=== PATIENT | female | born 1980 | race Caucasian/White ===

== ENCOUNTER 2017-10-12 10:04 | Emergency (ER) | payer OTHER, SELFPAY ==
[2017-10-12 10:34] VITALS: BP 122/78; PULSE 83; RESP 18; TEMP 37.1; O2SAT 98; BMI 32.3
[2017-10-12 10:47] LABS: UTC Influenza A Antigen Negative (Negative); UTC Influenza B Antigen Negative (Negative)
--- NOTE | 2017-10-12 11:25 | HMH.EDUTC ---
[facility] [place] Clinical Impression: Viral respiratory illness, Exposure to influenza Disposition: Home, Self-Care Condition on Discharge: Good Instructions: How to Avoid a Cold or Flu, DI for Viral Upper Respiratory Infection -- Adult Additional Instructions: * No sign of bacterial infection. Likely viral. Virus can take 7-14 days to run their course. Could be the flu. If getting worse, we can always retest you. * Monitor Temp. Tylenol every 4 hours as needed no more then 5 times a day or 4000mg in 24 hours and/or ibuprofen every 6 hours as needed no more then 3200mg in 24 hours (as long as your primary care doctor has told you that it is ok to take both) for fever/aches/pain. ER if fever no less than 101 despite tylenol and ibuprofen * Encourage fluids, water, gatorade, powerade, pedialyte if infant/toddler/child * warm salt water gargles * warm fluids * sore throat lozenges * sleep elevated * humidifier/vaporizer * You (or your child) are contagious until no fever, aches, chills x 24 hours without medication for symptoms. Referrals: Zuhair Minor MD [Primary Care Provider] - (IMMEDIATELY for new or worsening symptoms, improvement followed by suddenly feeling worse OR no noticeable improvement over the next 48-72 hours. 911 for difficulty breathing ) Time of Disposition: 11:42 Medical Decision Making Vital Signs: 10/12/17 10:34 Temperature 98.8 F Temperature Source Oral Pulse Rate [Right Radial] 83 Respiratory Rate 18 Blood Pressure [Right Arm] 122/78 Blood Pressure Mean [Right Arm] 92 Blood Pressure Source [Right Arm] Automatic Cuff Blood Pressure Position [Right Arm] Sitting 02 Sat by Pulse Oximetry 98 Oxygen Delivery Method Room Air - Lab Data Lab Results 10/12/17 10:36: Influenza Type A Ag Negative, Influenza Type B Ag Negative - Yonathan Inquiry Pt receiving controlled substance: No [facility] [place] - General Stated complaint: Chills, MARR Time Seen by Provider: 10/12/17 11:26 Mode of Arrival: Ambulatory Source of Information: Patient Limitations: No Limitations Description of Symptoms (Recalled from Triage Doc. by RN): PT C/O COUGH, HEADACHE, CHILLS. HEENT Symptoms (Recalled from RN notes): Yes (HEADACHE) Resp Symptoms (Recalled from RN notes): (COUGH) Skin Symptoms (Recalled from RN notes): No MS Symptoms (Recalled from RN notes): No Functional Status (Recalled from RN notes): NA - History of Present Illness Provider Complaint: c/o nonprod cough, headache, chills today since being exposed to the flu. no treatment prior to arrival. Wants a flu test. - Related Data Home Medications Medication Instructions Recorded Confirmed Metoprolol Tartrate [Lopressor 25 mg PO DAILY 10/12/17 10/12/17 25mg tablet] methIMAzole [Methimazole] 5 mg PO DAILY 10/12/17 10/12/17 - Worker's Comp Is this a Worker's Comp case?: No [facility] History I have reviewed the patient's past medical history: Yes (denies) Other Surgeries: Yes: No Previous Surgery Amputation: No Fractures: No - *Social History Alcohol Intake: never - Psychiatric History Expresses thoughts of harming self/others: None Suicide Plan Description: No Plan ROS Obtained: Yes Systems reviewed as appropropriate & no additional complaint - Constitutional Reports chills, Denies anorexia, Denies body ache(s), Denies fatigue, Denies fever(s), Denies malaise - Eyes Denies discharge - ENT Reports nasal discharge, Denies ear pain, Denies nasal congestion, Denies sore throat - Cardiovascular Denies rapid, pounding, or irregular heartbeat - Respiratory Reports cough, Denies shortness of breath, Denies stridor, Denies wheezing - Gastrointestinal Reports nausea, Reports vomiting - Integumentary/Breasts Denies rash - Neurologic Reports headache(s), Denies dizziness Physical Exam - General General appearance: alert, in no apparent distress - Eye Eye exam: Present: normal appearance - ENT ENT exam: Present
== END 2017-10-12 11:48 | disposition home or self-care (01) ==
PROVIDERS: Emergency Provider Nurse Practitioner Family; PCP Family Medicine
DX: B34.9 Viral infection, unspecified (principal); Z20.828 Contact with and (suspected) exposure to other viral communicable diseases
CPT/HCPCS: 87276; 87804; 99202

== ENCOUNTER → 2018-01-29 12:21 | Outpatient (REF) | payer OTHER, SELFPAY ==
[2018-01-29 14:22] LABS: Basophils % 0.4 % (0.1-2.0); Eosinophils # 0.1 K/mm3 (0.0-0.4); Eosinophils % 1.3 % (0.1-12.0); Hematocrit 42.8 % (37.0-47.0); Hemoglobin 13.7 g/dL (12.2-16.2); Lymphocytes # 1.8 K/mm3 (0.7-4.5); Lymphocytes % 23.1 K/mm3 (10-50); Mean Corpuscular Hemoglobin 28.6 pg (27.0-31.2); Mean Corpuscular Volume 89.4 fl (81-99); Mean Platelet Volume 8.7 fl (7.4-10.4); Monocytes # 0.4 K/mm3 (0.1-1.0); Monocytes % 4.9 % (1.7-9.3); Neutrophils # 5.5 K/mm3 (1.8-7.8); Neutrophils % 70.3 % (37.0-80.0); Platelet Count 356 K/mm3 (142-424); Red Blood Count 4.79 M/mm3 (4.20-5.40); White Blood Count 7.9 K/mm3 (4.8-10.8)
[2018-01-29 15:38] LABS: Hemoglobin A1C 5.3 % (0.0-7.0)
[2018-01-29 17:27] LABS: Alanine Aminotransferase 20 U/L (12-78); Albumin Level 3.7 gm/dL (3.4-5.0); Albumin/Globulin Ratio 1.1 (1.1-1.8); Alkaline Phosphatase 60 U/L (46-116); Anion Gap 14.4 mEq/L (5-15); Aspartate Amino Transferase 13 U/L (15-37); Bilirubin,Total 0.4 mg/dL (0.2-1.0); Blood Urea Nitrogen 10 mg/dL (7-18); Calcium 9.2 mg/dL (8.5-10.1); Carbon Dioxide 27 mmol/L (21.0-32.0); Chloride 103 mmol/L (98-107); Cholesterol 231 mg/dL (140-200); Creatinine,Serum 0.58 mg/dL (0.55-1.02); Estimated Glomerular Filt Rate 116 ml/min (>60); GFR (African American) 141 ML/MIN (>60); Globulin 3.5 gm/dl (1.3-3.2); Glucose 90 mg/dL (74-106); HDL Cholesterol 46 mg/dL (29-89); LDL Cholesterol 160 mg/dL (0-130); Potassium 4.4 mmoL/L (3.5-5.1); Sodium 140 mmol/L (136-145); T4 (Thyroxine) 11.9 ug/dl (4.7-13.3); Thyroid Stimulating Hormone 3.49 uIU/ml (0.358-3.740); Total Protein,Serum 7.2 gm/dL (6.4-8.2); Triglycerides 125 mg/dL (30-200); Triiodothryronine (T3) Uptake 25 % (31-39); VLDL Cholesterol 25 mg/dL (0-40)
[2018-01-31 12:53] LABS: Thyroid Peroxidase Antibodies 10 IU/mL (0-34)
== END ==
LOC: LAB 12:21
PROVIDERS: Visit Provider Nurse Practitioner Family
DX: R53.83 Other fatigue (principal)
CPT/HCPCS: 80053; 80061; 82652; 83036; 84436; 84443; 84479; 85025; 86376

== ENCOUNTER → 2018-04-15 10:33 | Outpatient (CLI) | payer OTHER, SELFPAY ==
[2018-04-15 11:51] LABS: Free T4 (Free Thyroxine) 0.84 ng/dl (0.76-1.46); Thyroid Stimulating Hormone 2.88 uIU/ml (0.358-3.740)
[2018-04-17 06:04] LABS: Triiodothyronine (T3) Free 2.9 pg/mL (2.0-4.4)
== END ==
PROVIDERS: Visit Provider Internal Medicine Endocrinology, Diabetes & Metabolism
DX: E03.8 Other specified hypothyroidism (principal); E06.3 Autoimmune thyroiditis
CPT/HCPCS: 36415; 84439; 84443; 84481

== ENCOUNTER → 2019-02-16 09:34 | Outpatient (CLI) | payer OTHER, SELFPAY ==
--- NOTE | 2019-02-16 09:45 | XR_ITS ---
XR ribs LT min 3V w CXR1V HISTORY: Left-sided rib pain ITS.REASON: LT RIB PAIN ORDERING PHYSICIAN: Annabel Soto MD PATIENT AGE: 38 years Comparison: None FINDINGS: A frontal view of the chest shows no acute finding. Multiple views of the Left ribs were obtained. No fracture or dislocation. No lytic or blastic change. IMPRESSION: Negative RIBS. If pain persists, consider follow-up exam in 7-[address] with 3-D reformats.
== END ==
PROVIDERS: PCP Emergency Medicine; Visit Provider Emergency Medicine
DX: R07.81 Pleurodynia (principal)
CPT/HCPCS: 71101

== ENCOUNTER → 2019-03-03 16:09 | Outpatient (CLI) | payer BC, SELFPAY ==
--- NOTE | 2019-03-03 16:18 | XR_ITS ---
XR acute abdomen series HISTORY: ITS.REASON: ABDOMINAL PAIN, LUQ ORDERING PHYSICIAN: Zuhair Minor MD PATIENT AGE: 38 years COMPARISON: None TECHNIQUE: Upright view of the chest is performed along with upright and supine views of the abdomen and pelvis. FINDINGS: An upright view of the chest shows no acute cardiac or pulmonary pathology. The lungs are clear. Upright and supine views of the abdomen show an unremarkable bowel gas pattern. No intestinal obstruction or free air is evident. No abnormal calcifications or significant bony anomalies evident. No organomegaly apparent. There is mild amount of retained colonic feces IMPRESSION: No acute finding.
== END ==
PROVIDERS: PCP Family Medicine; Visit Provider Family Medicine
DX: R10.12 Left upper quadrant pain (principal)
CPT/HCPCS: 74021

== ENCOUNTER → 2019-03-09 09:07 | Outpatient (CLI) | payer BC, SELFPAY ==
--- NOTE | 2019-03-09 09:13 | US_ITS ---
US abdomen limited History:Left upper quadrant pain, upper abdominal pain Ordering Physician:Sheela Trujillo APRN Patient Age: 38 years Comparison:None Findings: Pancreas:The pancreas is poorly demonstrated due to overlying bowel gas. Liver:Unremarkable. No obvious mass or abnormal fluid collection. No ductal dilatation Right Kidney:Unremarkable. Normal size and echogenicity. No hydronephrosis Gallbladder:Gallbladder is contracted. No stones, gallbladder wall thickening, pericholecystic fluid, or biliary dilatation is evident. Common bile duct is 4 mm. Spleen: Unremarkable. Left kidney: Unremarkable. Impression: Contracted appearing gallbladder. No obvious stones or other significant anomalies The pancreas is poorly demonstrated due to overlying bowel gas
== END ==
PROVIDERS: PCP Nurse Practitioner Family; Visit Provider Nurse Practitioner Family
DX: R10.12 Left upper quadrant pain (principal)
CPT/HCPCS: 76700

== ENCOUNTER → 2019-03-26 16:58 | Outpatient (CLI) | payer BC, SELFPAY ==
--- NOTE | 2019-03-26 17:09 | XR_ITS ---
XR foot RT min 3V HISTORY: ITS.REASON: MASS OF RIGHT FOOT ORDERING PHYSICIAN: RUDY Camilo PATIENT AGE: 38 years COMPARISON: None FINDINGS: No fracture or dislocation. No lytic or blastic change. There is normal mineralization.. The joint spaces are well-preserved. No significant degenerative/arthritic changes. No erosive changes evident. There is an oval soft tissue mass along the dorsal aspect of the foot at the proximal to mid metatarsal region measuring 2.6 x 1.1 cm. No calcification. No bony erosion. IMPRESSION: 1. Dorsal subcutaneous soft tissue nodule at the metatarsal region 2. Otherwise negative
== END ==
PROVIDERS: PCP Family Medicine; Visit Provider Physician Assistant
DX: R22.41 Localized swelling, mass and lump, right lower limb (principal)
CPT/HCPCS: 73630

== ENCOUNTER → 2019-04-07 18:40 | Outpatient (CLI) | payer BC, SELFPAY | PROVIDERS: Visit Provider Podiatrist | DX: R22.41 Localized swelling, mass and lump, right lower limb (principal) | CPT/HCPCS: 87070; 87205 ==

== ENCOUNTER → 2019-06-26 08:16 | Outpatient (CLI) | payer BC, SELFPAY ==
[2019-06-26 08:24] LABS: Adenovirus F 40/41, stool Not Detected (NotDetected); Astrovirus Not Detected (NotDetected); Campylobacter Not Detected (NotDetected); Clostridium Difficile A/B, PCR Not Detected (NotDetected); Cryptosporidium Not Detected (NotDetected); Cyclospora Cayetanesis Not Detected (NotDetected); Entamoeba histolytica Not Detected (NotDetected); Enteroaggregative E coli Not Detected (NotDetected); Enteropathogenic E coli Not Detected (NotDetected); Enterotoxigenic E coli Not Detected (NotDetected); Giardia lamblia Not Detected (NotDetected); Norovirus Not Detected (NotDetected); Plesimonas Shigalloides, PCR Not Detected (NotDetected); Rotavirus A Not Detected (NotDetected); Salmonella, PCR Not Detected (NotDetected); Sapovirus Not Detected (NotDetected); Shiga-like toxin E coli Not Detected (NotDetected); Shigella Enterovasive E coli Not Detected (NotDetected); Vibrio Cholerae Not Detected (NotDetected); Vibrio, PCR Not Detected (NotDetected); Yersinia Entercolitica, PCR Not Detected (NotDetected)
[2019-06-26 09:02] LABS: Occult Blood,Stool Negative (Negative)
[2019-07-01 10:47] LABS: Calprotectin, Fecal 90 ug/g (0-120)
== END ==
PROVIDERS: Visit Provider Emergency Medicine
DX: K52.9 Noninfective gastroenteritis and colitis, unspecified (principal)
CPT/HCPCS: 82272; 83993; 87507; G0328

== ENCOUNTER → 2020-11-23 13:46 | Outpatient (CLI) | payer BC, SELFPAY ==
[2020-11-23 14:10] LABS: Chloride 104 mmol/L (98-107); Sodium 138 mmol/L (136-145)
[2020-11-23 14:12] LABS: Alanine Aminotransferase 17 U/L (12-78); Alkaline Phosphatase 69 U/L (38-126); Aspartate Amino Transferase 26 U/L (14-36); Bilirubin,Total 0.8 mg/dl (0.2-1.3); Blood Urea Nitrogen 11 mg/dl (7-17); Estimated Glomerular Filt Rate 92 ml/min (>60); GFR (African American) 112 ML/MIN (>60)
[2020-11-23 14:13] LABS: Albumin Level 4.3 g/dl (3.5-5.0); Albumin/Globulin Ratio 1.3 (1.1-1.8); Calcium 9.6 mg/dl (8.4-10.2); Carbon Dioxide 29 mmol/L (22.0-30.0); Creatine Kinase 147 U/L (30-135); Globulin 3.3 g/dL (1.3-3.2); Glucose 104 mg/dl (74-100); Total Protein,Serum 7.6 g/dl (6.3-8.2)
--- NOTE | 2020-11-23 14:14 | ECG_ITS ---
APPROVED REPORT Exam: Resting ECG HR:75 bpm ECG Measurements Heart Rate 75 AXES HI 114 P 39 QRSd 74 QRS 5 QT 400 T 11 QTc 446 Conclusion Normal sinus rhythm Late r wave progression Abnormal ECG Electronically signed by : Paramjit Hastings, 11/23/2020 14:20:09
[2020-11-23 14:21] LABS: CKMB Relative Index 1.3 U/L (0-4.0); Creatine Kinase MB 1.9 ng/ml (0.0-2.03)
[2020-11-23 14:25] LABS: Basophils % 0.3 % (0.1-2.0); Eosinophils # 0.1 K/mm3 (0.0-0.4); Eosinophils % 1.1 % (0.1-12.0); Hematocrit 41.9 % (37.0-47.0); Hemoglobin 13.3 g/dL (12.2-16.2); Lymphocytes # 2.2 K/mm3 (0.7-4.5); Mean Corpuscular HGB Conc 31.9 g/dL (31.8-35.4); Mean Corpuscular Hemoglobin 27.8 pg (27.0-31.2); Mean Corpuscular Volume 87.3 fl (81-99); Mean Platelet Volume 7.9 fl (7.4-10.4); Monocytes # 0.5 K/mm3 (0.1-1.0); Monocytes % 4.4 % (1.7-9.3); Neutrophils # 8.2 K/mm3 (1.8-7.8); Neutrophils % 74.1 % (37.0-80.0); Platelet Count 277 K/mm3 (142-424); Red Cell Distribution Width 13.7 % (11.5-17.5)
[2020-11-23 14:27] LABS: Troponin I < 0.01 ng/ml (0.00-0.034)
[2020-11-23 14:44] LABS: Thyroid Stimulating Hormone 2.16 uIU/mL (0.465-4.68)
== END ==
PROVIDERS: Visit Provider Physician Assistant
DX: R07.9 Chest pain, unspecified (principal)
CPT/HCPCS: 36415; 80053; 82550; 82553; 84443; 84484; 85025; 93005

== ENCOUNTER → 2020-11-25 07:23 | Outpatient (CLI) | payer BC, SELFPAY ==
--- NOTE | 2020-11-25 | CA_ITS ---
APPROVED REPORT Exam: Exercise Treadmill Technologist: Mariel Smith Ht: 4 ft 11 in Wt: 165 lbs BSA: 1.70 m2 HR: 69 bpm BP: 127/80 mmHg Indications: Chest pain Medical History Medications: Esomeprazole,,,,, Budesonide,,,,, Levonorgestrel-Ethinyl,,,,, Stress Test Details Test: Vic HR Resting HR: 95 bpm Max Heart Rate (APMHR): 179 bpm Max HR Achieved: 172 bpm Target HR (85% APMHR): 152 bpm % of APMHR: 96 Recovery HR: 112 bpm BP Resting BP: 127.0/80.0 mmHg Max BP: 160.0/90.0 mmHg Recovery BP: 133.0/90.0 mmHg ECG Resting ECG: Normal sinus rhythm Clinical Reason for Termination: Dyspnea Exercise duration: 09:20 min Highest Stage Achieved: Exercise capacity: 10.1 METs Stress ECG Conclusion Symptoms: Mild chest tightness. No chest pain. Arrhythmias/Ectopy: None ST-T Changes: < 1.[address] segment depression - normal Conclusion: Negative stress test. Patient exercised on a vic protocol for 9 minutes and 20 seconds to peak heart rate of 172 bpm ( target heart rate 152 bpm) without chest pain or arrhythmias. Less than 1.[address] segment depression noted that resolved quickly in recovery, likely normal. Total METs acheived was 10.1 with peak blood pressure 160/90 mmHg. Mild chest tightness/shortness of air at peak stress that resolved quickly in recovery. See the nuclear report for further information. Test Summary Stage 3 02:00 14.0 3.4 160 . . . Myoview Injected REST . . . . . . . Standing REST 10:40 0.0 0.0 95 . 127/ 80 . . Stage 1 01:00 10.0 1.7 112 . . . . Stage 1 02:00 10.0 1.7 121 . . . . Stage 1 03:00 10.0 1.7 129 . 140/ 82 . . Stage 2 01:00 12.0 2.5 134 . . . . Stage 2 02:00 12.0 2.5 139 . . . . Stage 2 03:00 12.0 2.5 138 . 150/ 88 . . Stage 3 01:00 14.0 3.4 155 . . . . Stage 3 . . . . . . . Myoview Injected Stage 3 02:00 14.0 3.4 160 . . . . Stage 3 03:00 14.0 3.4 164 . 160/ 90 . . Stage 4 00:20 16.0 4.2 172 . . . Stop exercise at 09:20 RECOVERY . . . . . . . chest tightness RECOVERY 01:00 0.0 0.0 137 . . . . RECOVERY 02:00 0.0 0.0 115 . . . . RECOVERY 03:00 0.0 0.0 106 . . . . RECOVERY 04:00 0.0 0.0 103 . . . . RECOVERY 05:00 0.0 0.0 101 . . . . RECOVERY 05:23 0.0 0.0 108 . 133/ 90 . . Electronically signed by : Kiel Dalton, 11/25/2020 11:03:44
--- NOTE | 2020-11-25 07:32 | NM_ITS ---
APPROVED REPORT Exam: Nuclear Stress Test Indication: fm hx, c.p., sob, fatigue Patient Location: Outpatient Stress Tech: Mariel Smith [place] Tech:Cande Sanches DELONTE RT(R)(N) Ht: 4 ft 11 in Wt: 164 lbs Bra Size: 36DDD HR: 69 bpm BP: 127/80 mmHg BSA: 1.70 m2 BMI: 33.1 Procedure: Patient exercised on Luis Eduardo protocol 9:00 minutes and sec, resting heart rate 69 bpm, resting blood pressure 127/80 mmHg, with exercise maximum heart rate achived was 172 bpm which is 113 % of the maximum predicted heart rate and blood pressure was 160/90 mmHg. Patient has good exercise capacity, achieved 10.1 METs of workload on treadmill, the blood pressure response to exercise was Adequate. Electrocardiogram Resting electrocardiogram shows sinus rhythm, with exercise there is less than 1.[address] segment depression noted from the baseline EKG. The EKG portion of the exercise Myoview is negative for ischemia. Cardiac Stress and Resting SPECT Images: Cardiac Stress and Resting SPECT images were obtained using technetium 99m Myoview 30.0 mCi stress and 10.30 mCi at rest. Gated SPECT for analysis of segmental wall motion and calculation of the ejection fraction also done, prone images were also obtained. Cardiac stress and rest SPECT images show uniform myocardial activity without segmental perfusion abnormality, computer derived ejection fraction is 63% with no regional wall motion abnormality, right ventricle is normal size and contractility. Conclusion: 1. The EKG portion of the exercise Myoview is negative for ischemia, patient has good exercise capacity achieved 10.1 mets of workload on treadmill, the blood pressure response to exercise was adequate, with peak exercise patient complained of mild chest tightness and shortness of breath which resolved in the recovery quickly. There were no EKG changes to suggest ischemia. 2. No scintigraphic evidence of reversible ischemia seen, computer derived ejection fraction is 63% with no regional wall motion abnormality, right ventricle is normal size and contractility. Electronically signed by : Kiel Dalton, 11/25/2020 11:08:57
== END ==
PROVIDERS: PCP Nurse Practitioner Family; Visit Provider Physician Assistant
DX: R07.9 Chest pain, unspecified (principal)
CPT/HCPCS: 78452; 93017; A9502

== ENCOUNTER → 2020-12-15 16:26 | Outpatient (CLI) | payer BC, SELFPAY ==
--- NOTE | 2020-12-15 16:43 | ECG_ITS ---
APPROVED REPORT Exam: Resting ECG HR:88 bpm ECG Measurements Heart Rate 88 AXES MI 108 P 48 QRSd 74 QRS 18 QT 362 T 16 QTc 438 Conclusion Sinus rhythm with short MI Otherwise normal ECG Electronically signed by : Paramjit Hastings, 12/16/2020 08:53:53
== END ==
PROVIDERS: PCP Nurse Practitioner Family; Visit Provider Nurse Practitioner Family
DX: R00.0 Tachycardia, unspecified (principal)
CPT/HCPCS: 93005

== ENCOUNTER → 2020-12-20 08:22 | Outpatient (CLI) | payer BC, SELFPAY ==
--- NOTE | 2020-12-20 08:22 | US_ITS ---
PROCEDURE: US GALLBLADDER CLINICAL INDICATION: abd pain COMPARISON: No exams were available for comparison FINDINGS: Pancreas: Pancreas is not well delineated due to overlying bowel gas. CT or MRI without and with contrast with pancreatic protocol may provide further evaluation if clinically desired. Liver: Unremarkable. There is appropriate direction of blood flow within a non dilated portal vein. Right kidney: Unremarkable appearing. No hydronephrosis. Gallbladder: No stones are evident. There is no gallbladder wall thickening. Common duct is normal in diameter. IMPRESSION: Negative gallbladder ultrasound. No stones evident. Pancreas is not well delineated due to overlying bowel gas. Dictated by: Samuel Sun MD 12/21/2020 19:13 Samuel Sun MD in [place] 12/21/2020 19:13
== END ==
PROVIDERS: PCP Nurse Practitioner Family; Visit Provider Nurse Practitioner Family
DX: R10.9 Unspecified abdominal pain (principal); R11.0 Nausea
CPT/HCPCS: 76705

== ENCOUNTER → 2020-12-27 12:53 | Outpatient (CLI) | payer BC, SELFPAY ==
--- NOTE | 2020-12-27 12:54 | CA_ITS ---
APPROVED REPORT EXAM: Comprehensive 2D, Doppler, and color-flow Echocardiogram Greenhouse Laborer: Grace Morales RT(R) Ht: 5 ft 2 in Wt: 171lbs BSA: 1.79 BP: 155/87 mmHg Indications: cp, sob, HTN, Palpitations 2D Dimensions LVOT 1.86 cm (M/F) 1.5-2.5 M-Mode Dimensions RVDd 2.29 cm (0.9-2.6) LA Diam 2.62 cm (1.9-4.0) LVDd 3.51 cm (3.5-5.7) Ao Diam 1.72 cm (2.0-3.7) LVDs 2.69 cm (3.5-5.7) IVSd 0.61 cm (0.6-1.1) PWd 0.82 cm (0.6-1.1) EF (Teich) 47.70% FS 23.40% EDV (Teich) 51.20 mL ESV (Teich) 26.80 mL LV Diastology E Decel Time 220.00 (160-240 msec) E/A Ratio 1.16 MED E' 15.70 (< 7 cm/sec) E'/MED E' Ratio 5.25 (>14) LAT E' 11.90 (<10 cm/sec) E/LAT E' Ratio 6.92 (>14) Mitral Valve MV E Max Carrillo. 82.00 (40-130 cm/s) MV A Velocity 71.00 (40-130 cm/s) E/A Ratio 1.16 MV Decel. Time 220.00 (160-240 ms) MV PHT 64.00 ms Left Ventricle Left atrium is normal size, left ventricle is normal size, there is no concentric left ventricular hypertrophy, visually estimated ejection fraction 55% with no regional wall motion abnormality, diastolic parameters are within normal range. Right Ventricle Right atrium and right ventricle are normal size and contractility. Aortic Valve Aortic valve is grossly normal, there is no aortic stenosis or aortic insufficiency. Mitral Valve Mitral valve is grossly normal, there is trace mitral regurgitation. Tricuspid Valve Tricuspid grossly normal, there is trace tricuspid regurgitation, tricuspid regurgitation jet velocity is inadequate for calculation of the right ventricular systolic pressure. Pulmonic Valve Pulmonic valve is poorly visualized. Great Vessels Aortic root is normal size. Pericardium No significant pericardial effusion noted. Conclusion 1. Normal left ventricular size, preserved left ventricular systolic function, visually estimated ejection fraction 55% with no regional wall motion abnormality, diastolic parameters are within normal range. 2. Trace mitral and tricuspid regurgitation. 3. No significant pericardial effusion noted. Electronically signed by : Kiel Dalton, 12/27/2020 20:00:03
== END ==
PROVIDERS: PCP Nurse Practitioner Family; Visit Provider Nurse Practitioner Family
DX: R07.89 Other chest pain (principal); R06.02 Shortness of breath; R00.0 Tachycardia, unspecified
CPT/HCPCS: 93306

== ENCOUNTER → 2020-12-27 13:29 | Outpatient (CLI) | payer SELFPAY ==
--- NOTE | 2020-12-27 13:29 | CT_ITS ---
PROCEDURE: CT HEART W CALCIUM SCORE CLINICAL HISTORY: eval for cad COMPARISON: No exams were available for comparison TECHNIQUE: Axial images obtained with sagittal and coronal reformats. All CT scans at the facility use one or more dose reduction, viz: automated exposure control, ma/kV adjustment per patient size (including targeted exams where dose is matched to indication, i.e. head), or iterative reconstruction technique. FINDINGS: No identifiable calcific atherosclerotic plaque with very low cardiovascular disease risk. Coronary artery calcium score is 0 IMPRESSION: No identifiable calcific atherosclerotic plaque with very low cardiovascular disease risk Dictated by: Samuel Sun MD 12/27/2020 19:53 Samuel Sun MD in [place] 12/27/2020 19:53
== END ==
PROVIDERS: PCP Nurse Practitioner Family; Visit Provider Internal Medicine Cardiovascular Disease
DX: Z13.6 Encounter for screening for cardiovascular disorders (principal); R06.02 Shortness of breath; R07.9 Chest pain, unspecified; R00.0 Tachycardia, unspecified; I10 Essential (primary) hypertension
CPT/HCPCS: 75571

== ENCOUNTER 2021-01-07 10:24 | Emergency (ER) | payer BC, SELFPAY ==
[2021-01-07 10:39] VITALS: BP 153/87; PULSE 77; RESP 19; TEMP 37.1; O2SAT 100; BMI 34.3
--- NOTE | 2021-01-07 11:05 | HMH.EDUTC ---
[facility] [place] Clinical Impression: Contact dermatitis Qualifiers: Contact dermatitis type: allergic Contact dermatitis trigger: other trigger Qualified Code(s): L23.89 - Allergic contact dermatitis due to other agents Disposition: Home, Self-Care Condition on Discharge: Good Instructions: DI for Contact Dermatitis Additional Instructions: follow up with pcp Prescriptions: predniSONE [Prednisone 20mg Tab] 20 mg PO BID #10 tab Transmission Status: Pending to [id number] Referrals: Juvenal Gerardo APRN [Primary Care Provider] - Time of Disposition: 11:24 Medical Decision Making - Yonathan Inquiry Pt receiving controlled substance: No Vital Signs: 01/07/21 10:39 Temperature 98.7 F Temperature Source Oral Pulse Rate [Right] 77 Respiratory Rate 19 Blood Pressure [Right Arm] 153/87 H Blood Pressure Mean [Right Arm] 109 02 Sat by Pulse Oximetry 100 [facility] [place] HPI - General Chief complaint: Urgent Treatment Center Stated complaint: blood blisters on breast Time Seen by Provider: 01/07/21 11:05 Mode of Arrival: Ambulatory Source of Information: Patient Limitations: No Limitations Description of Symptoms (Recalled from Triage Doc. by RN): pt states she has a blood blister on her left breast that came up yesterday. it has started turning into a bruise today. HEENT Symptoms (Recalled from RN notes): No Resp Symptoms (Recalled from RN notes): No Skin Symptoms (Recalled from RN notes): Yes (blood blister on L breast) MS Symptoms (Recalled from RN notes): No Functional Status (Recalled from RN notes): na - History of Present Illness Provider Complaint: 40 yr old female pt states she has a blood blister on her left breast that came up yesterday. it has started turning into a bruise today. Pt states this has happened before. Pt states she has a red itchy rash also - Related Data Home Medications Medication Instructions Recorded Confirmed levothyroxine 25 mcg capsule 25 mcg PO DAILY 12/15/20 01/06/21 lisinopril 5 mg tablet 5 mg PO DAILY 12/15/20 01/06/21 Previous Rx's Medication Instructions Recorded cyclobenzaprine 10 mg tablet 10 mg PO TID PRN #60 tab 12/13/20 metoprolol succinate 25 mg 25 mg PO DAILY #90 tab 01/06/21 tablet,extended release 24 hr omeprazole 40 mg capsule,delayed 40 mg PO DAILY PRN #90 cap 01/06/21 release predniSONE [Prednisone 20mg 20 mg PO BID #10 tab 01/07/21 Tab] Allergies Allergy/AdvReac Type Severity Reaction Status Date / Time No Known Allergies Allergy Verified 01/07/21 10:43 - Worker's Comp Is this a Worker's Comp case?: No H History - Hepatitis A Screen Drug use history?: No High risk sexual behaviors?: No History of sexually transmitted infection?: No Currently employed?: No Childcare worker?: No Do you have indoor plumbing?: Yes Do you have electricity?: Yes Attestation statement:: This patient has been screened for Hepatitis A risk factors. I have reviewed the patient's past medical history: Yes Medical History: Reports:: Arrhythmia, Hypertension, Palpitations Other Medical History: Reports: Hypothyroidism, Thyroid Disease Comment: HYPERTENSION. TACHYCARDIA. THYROID DS. HYPOTHYROIDISM. ARRYTHMIA Other Surgeries: Yes: No Previous Surgery Amputation: No Fractures: No - Social History Smoking Status: Never smoker Alcohol Intake: never Alcohol Intake Frequency:: other Substance Use Type: denies use Occupational Status: employed Housing: house Household Members: family Family Hx:: Heart Attack, Hypertension, Thyroid Disorder Comment: 2005---, FEMALE, NO COMP. ROS Obtained: Yes Systems reviewed as appropriate & no additional complaints - Constitutional Constitutional: Reports system reviewed and no additional complaints, except as docu, Denies body ache, Denies fever(s) - Eyes Eyes: Reports system reviewed and no additional complaints, except as docu, Denies blurry vision - ENT Ears, Nose, Mouth, and Throa
[2021-01-07 11:30] VITALS: BP 142/80; PULSE 74; RESP 12; TEMP 36.6
== END 2021-01-07 11:30 | disposition home or self-care (01) ==
PROVIDERS: Emergency Provider Nurse Practitioner Family; PCP Nurse Practitioner Family
DX: L23.89 Allergic contact dermatitis due to other agents (principal); I10 Essential (primary) hypertension; E03.9 Hypothyroidism, unspecified; R00.0 Tachycardia, unspecified; Z79.899 Other long term (current) drug therapy
CPT/HCPCS: 99202; G0463

== ENCOUNTER → 2021-06-28 11:17 | Outpatient (CLI) | payer BC, SELFPAY ==
[2021-06-28 12:24] LABS: Basophils % 0.6 % (0.1-2.0); Hematocrit 38.8 % (37.0-47.0); Hemoglobin 12.7 g/dL (12.2-16.2); Lymphocytes # 0.9 K/mm3 (0.7-4.5); Mean Corpuscular HGB Conc 32.6 g/dL (31.8-35.4); Mean Corpuscular Hemoglobin 28.9 pg (27.0-31.2); Mean Corpuscular Volume 88.6 fl (81-99); Mean Platelet Volume 8.8 fl (7.4-10.4); Monocytes # 0.3 K/mm3 (0.1-1.0); Monocytes % 5.8 % (1.7-9.3); Neutrophils % 75.6 % (37.0-80.0); Platelet Count 207 K/mm3 (142-424); Red Blood Count 4.38 M/mm3 (4.20-5.40); Red Cell Distribution Width 13.6 % (11.5-17.5); White Blood Count 5.3 K/mm3 (4.8-10.8)
== END ==
PROVIDERS: PCP Physician Assistant; Visit Provider Physician Assistant
DX: Z20.822 Contact with and (suspected) exposure to COVID-19 (principal); U07.1 COVID-19
CPT/HCPCS: 36415; 85025; 87275; 87276; C9803; U0003; U0005

== ENCOUNTER 2021-11-20 03:46 | Emergency (ER) | payer BC, SELFPAY ==
[2021-11-20] VITALS (8 sets, daily range): BP systolic 88–117; BP diastolic 52–83; PULSE 62–83; RESP 16–18; TEMP 36.6–36.7; O2SAT 99–100; BMI 35.7
--- NOTE | 2021-11-20 03:59 | ECG_ITS ---
APPROVED REPORT Exam: Resting ECG HR:75 bpm ECG Measurements Heart Rate 75 AXES ID 120 P 44 QRSd 78 QRS 23 QT 429 T 9 QTc 457 Conclusion SINUS RHYTHM Left atrial abnormality BORDERLINE ECG UNCONFIRMED REPORT Electronically signed by : Paramjit Hastings MD 11/22/2021 21:08:21
[2021-11-20 04:25] LABS: Basophils # 0.2 K/mm3 (0-0.2); Basophils % 0.8 % (0.1-2.0); Eosinophils # 0.1 K/mm3 (0.0-0.4); Eosinophils % 0.4 % (0.1-12.0); Hematocrit 44.9 % (37.0-47.0); Hemoglobin 14.2 g/dL (12.2-16.2); Lymphocytes # 2.3 K/mm3 (0.7-4.5); Lymphocytes % 12.8 % (10-50); Mean Corpuscular HGB Conc 31.7 g/dL (31.8-35.4); Mean Corpuscular Hemoglobin 28.5 pg (27.0-31.2); Mean Corpuscular Volume 89.7 fl (81-99); Mean Platelet Volume 9.2 fl (7.4-10.4); Monocytes # 0.5 K/mm3 (0.1-1.0); Monocytes % 2.9 % (1.7-9.3); Neutrophils # 14.6 K/mm3 (1.8-7.8); Platelet Count 304 K/mm3 (142-424); White Blood Count 17.6 K/mm3 (4.8-10.8)
[2021-11-20 04:28] LABS: MANUAL DIFFERENTIAL MANUAL DIFFERENTIAL (MANUAL DIFF)
[2021-11-20 04:30] LABS: HCG Qualitative, Serum Negative (Negative)
[2021-11-20 04:31] LABS: Alanine Aminotransferase 19 U/L (12-78); Albumin Level 3.7 g/dl (3.5-5.0); Albumin/Globulin Ratio 1.4 (1.1-1.8); Alkaline Phosphatase 48 U/L (38-126); Anion Gap 7.3 mEq/L (5-15); Aspartate Amino Transferase 27 U/L (14-36); Bilirubin,Total 0.7 mg/dl (0.2-1.3); Blood Urea Nitrogen 15 mg/dl (7-17); Calcium 8.1 mg/dl (8.4-10.2); Carbon Dioxide 28 mmol/L (22.0-30.0); Chloride 105 mmol/L (98-107); Creatinine Clearance Estimated 133 mL/min (50-200); Estimated Glomerular Filt Rate 92 ml/min (>60); GFR (African American) 111 ML/MIN (>60); Globulin 2.6 g/dL (1.3-3.2); Glucose 138 mg/dl (74-100); Potassium 3.3 mmoL/L (3.5-5.1); Sodium 137 mmol/L (136-145); Total Protein,Serum 6.3 g/dl (6.3-8.2)
[2021-11-20 04:42] LABS: Eosinophils % 1 % (0-3); Hypochromasia 1+; Lymphocytes % 11 % (10-50); Neutrophils % 74 % (42-76); Platelet Estimate Normal; Total Cells Counted 100
[2021-11-20 04:59] LABS: Troponin I < 0.01 ng/ml (0.00-0.034)
[2021-11-20 05:03] LABS: T4 (Thyroxine) 12.9 ug/dl (5.53-11.0)
[2021-11-20 05:08] LABS: C-Reactive Protein 5.8 mg/L (0-4)
[2021-11-20 05:12] LABS: Procalcitonin 0.042 ng/mL (0.0-2.0)
[2021-11-20 05:16] LABS: Thyroid Stimulating Hormone 4.76 uIU/mL (0.465-4.68)
--- NOTE | 2021-11-20 05:55 | HMH.EDSYNC ---
ED Disposition Clinical Impression: Vasovagal syncope, Urticaria Disposition: Home, Self-Care Condition on Discharge: Good Instructions: DI for Syncope in Adults (Fainting) Additional Instructions: call pcp for follow up Referrals: Zuhair Minor MD [Primary Care Provider] - - Critical Care Critical Care Time: No Attestation: On 11/20/21, the high probability of a clinically significant, sudden or life threatening deterioration of the following system(s) required my full and direct attention, intervention and personal management. The time I documented below is in addition to time spent performing reported procedures but includes the following listed in this critical care notation. Medical Decision Making - Medical Records Medical records reviewed: Yes: I reviewed the patient's medical records. - Yonathan Inquiry Pt receiving controlled substance: No Vital Signs: 11/20/21 03:48 11/20/21 04:09 11/20/21 04:13 Temperature 97.8 F Temperature Source Oral Pulse Rate 72 Pulse Rate [Left Radial] 62 Pulse Rate [Orthostatic Lying Left Radial] 62 Pulse Rate [Orthostatic Sitting Left Radial] 72 Pulse Rate [Orthostatic Standing Left Radial] 77 Respiratory Rate 18 Blood Pressure 88/53 L Blood Pressure [Orthostatic Lying Right Arm] 96/54 L Blood Pressure [Orthostatic Sitting Right Arm] 99/52 L Blood Pressure [Orthostatic Standing Right Arm] 97/62 L Blood Pressure [Right Arm] 96/54 L Blood Pressure Mean [Right Arm] 68 Blood Pressure Position [Right Arm] Supine 02 Sat by Pulse Oximetry 100 100 Oxygen Delivery Method Room Air 11/20/21 04:45 11/20/21 05:00 11/20/21 05:40 Temperature Temperature Source Pulse Rate 71 71 76 Pulse Rate [Left Radial] Pulse Rate [Orthostatic Lying Left Radial] Pulse Rate [Orthostatic Sitting Left Radial] Pulse Rate [Orthostatic Standing Left Radial] Respiratory Rate 16 16 Blood Pressure 98/62 L 98/61 L 103/60 L Blood Pressure [Orthostatic Lying Right Arm] Blood Pressure [Orthostatic Sitting Right Arm] Blood Pressure [Orthostatic Standing Right Arm] Blood Pressure [Right Arm] Blood Pressure Mean [Right Arm] Blood Pressure Position [Right Arm] 02 Sat by Pulse Oximetry 100 99 99 Oxygen Delivery Method Room Air - Lab Data Lab results reviewed: Yes: I reviewed the patient's lab results. Lab Results 11/20/21 04:08: WBC 17.6 H, RBC 5.00, Hgb 14.2, Hct 44.9, MCV 89.7, MCH 28.5, MCHC 31.7 L, RDW 14.0, Plt Count 304, MPV 9.2, Neut % (Auto) 83.0 H, Lymph % (Auto) 12.8, [place] % (Auto) 2.9, Eos % (Auto) 0.4, Baso % (Auto) 0.8, Neut # (Auto) 14.6 H, Lymph # (Auto) 2.3, [place] # (Auto) 0.5, Eos # (Auto) 0.1, Baso # (Auto) 0.2, Total Counted 100, Neutrophils % (Manual) 74, Band Neutrophils % 14.0 H, Lymphocytes % (Manual) 11, Eosinophils % (Manual) 1, Platelet Estimate Normal, Hypochromasia 1+ 11/20/21 04:08: Sodium 137, Potassium 3.3 L, Chloride 105, Carbon Dioxide 28, Anion Gap 7.3, BUN 15, Creatinine 0.70, Estimated Creat Clear 133, Estimated GFR 92, Est GFR ( Amer) 111, Glucose 138 H, Calcium 8.1 L, Total Bilirubin 0.7, AST 27, ALT 19, Alkaline Phosphatase 48, Troponin I < 0.01, Total Protein 6.3, Albumin 3.7, Globulin 2.6, Albumin/Globulin Ratio 1.4 11/20/21 04:08: Serum HCG, Qual Negative 11/20/21 04:08: C-Reactive Protein 5.8 H, Thyroxine (T4) 12.9 H 11/20/21 04:08: Procalcitonin 0.042 Result diagrams: 11/20/21 04:08 11/20/21 04:08 Orders (Tests/Meds): ED MEDICATIONS Generic Name Dose Route Start Last Admin Trade Name Freq PRN Reason Stop Dose Admin Sodium Chloride 1,000 mls @ 999 mls/hr 11/20/21 04:15 11/20/21 04:21 Sod Chlor 0.9% 1000ml Bag IV 11/20/21 05:15 999 mls/hr .Q1H1M MIRIAM Administration Sodium Chloride 8 ml 11/20/21 04:15 Sodium Chloride 0.9% 10ml Vial IV 12/20/21 04:14 NEEDED PRN dilute pepcid Discontinued Medications Generic Name Dose Route Start
== END 2021-11-20 06:33 | disposition home or self-care (01) ==
PROVIDERS: Emergency Provider Emergency Medicine; PCP Family Medicine
DX: R55 Syncope and collapse (principal); L50.0 Allergic urticaria; E03.9 Hypothyroidism, unspecified
CPT/HCPCS: 80053; 84145; 84436; 84443; 84484; 84703; 85007; 85025; 86140; 93005; 96365; 96375; 99283

== ENCOUNTER 2021-11-21 12:47 | Observation (INO) | payer BC, SELFPAY ==
--- NOTE | 2021-11-21 13:04 | PC.NURSE ---
Pt arrived to the floor at this time.
[2021-11-21 13:08] VITALS: BP 125/69; RESP 17; TEMP 37.1; O2SAT 99; BMI 35.5
--- NOTE | 2021-11-21 13:27 | HMH.PHAVTE ---
[facility] Pharmacy VTE Monitoring - Patient Demographics Admission date: 11/21/21 Report Date: 11/21/21 Time: 13:27 Allergies/Adverse Reactions: Patient Allergies No Known Allergies Allergy (Verified 03/31/21 09:57) Height: 1.5 m Weight: 79.838 kg - Prophylaxis VTE Prophylaxis Ordered?: Yes Types of VTE Prophylaxis: TEDS Knee High Location of Applied Device: Bilateral Lower Extremeties
[2021-11-21 13:34] LABS: Basophils % 0.5 % (0.1-2.0); Eosinophils # 0.1 K/mm3 (0.0-0.4); Hematocrit 46.2 % (37.0-47.0); Hemoglobin 15.4 g/dL (12.2-16.2); Lymphocytes # 1.3 K/mm3 (0.7-4.5); Lymphocytes % 21.9 % (10-50); Mean Corpuscular HGB Conc 33.3 g/dL (31.8-35.4); Mean Corpuscular Hemoglobin 28.7 pg (27.0-31.2); Mean Corpuscular Volume 86.1 fl (81-99); Mean Platelet Volume 8.4 fl (7.4-10.4); Monocytes # 0.1 K/mm3 (0.1-1.0); Monocytes % 1.5 % (1.7-9.3); Neutrophils # 4.4 K/mm3 (1.8-7.8); Neutrophils % 75.2 % (37.0-80.0); Platelet Count 319 K/mm3 (142-424); Red Blood Count 5.37 M/mm3 (4.20-5.40); Red Cell Distribution Width 13.9 % (11.5-17.5); White Blood Count 5.8 K/mm3 (4.8-10.8)
[2021-11-21 13:43] LABS: Alanine Aminotransferase 23 U/L (12-78); Albumin Level 3.9 g/dl (3.5-5.0); Albumin/Globulin Ratio 1.4 (1.1-1.8); Alkaline Phosphatase 49 U/L (38-126); Anion Gap 10.3 mEq/L (5-15); Aspartate Amino Transferase 29 U/L (14-36); Blood Urea Nitrogen 12 mg/dl (7-17); Calcium 8.4 mg/dl (8.4-10.2); Carbon Dioxide 25 mmol/L (22.0-30.0); Chloride 104 mmol/L (98-107); Creatinine Clearance Estimated 154 mL/min (50-200); Estimated Glomerular Filt Rate 110 ml/min (>60); GFR (African American) 133 ML/MIN (>60); Globulin 2.7 g/dL (1.3-3.2); Glucose 105 mg/dl (74-100); Potassium 3.3 mmoL/L (3.5-5.1); Sodium 136 mmol/L (136-145); Total Protein,Serum 6.6 g/dl (6.3-8.2)
[2021-11-21 13:48] LABS: Coronavirus 19, PCR Not Detected (NotDetected); Influenza A, PCR Not Detected (NotDetected); Influenza B, PCR Not Detected (NotDetected)
--- NOTE | 2021-11-21 13:54 | PC.NURSE ---
Dr. trejo rounded on this pt at this time
[2021-11-21 15:11] VITALS: BP 124/69; PULSE 117; RESP 18; TEMP 37.5; O2SAT 94
--- NOTE | 2021-11-21 16:08 | HMH.HP ---
*Admission Date: 11/21/21 <Sheela Trujillo - 11/21/21 16:37> *Chief complaint: allergic reaction <Sheela Trujillo - 11/21/21 16:37> *History of present illness: Ms. Hayden is a 41-year-old female with a history of esophageal reflux, and hypothyroidism, who presented to the office of [facility] on 11/21/2021 with worsening of a rash. She was actually seen in the emergency room on 09/19/2022 and given IV Benadryl and Solu-Medrol and discharged home. Thought at that time was that she was allergic to clindamycin which she had been taking for an abscess beneath her right breast. She was seen again in the office on 11/20/2021 at which time her rash seemed to be better. She denied any difficulty with breathing or chest pain. She was instructed to continue with Benadryl as needed. In the p.m. of the same day she called and stated her rash seemed to be reoccurring and spreading. She noted some swelling over one of her eyes as well as rash on her legs and arms. She was thus started on a Medrol Dosepak. She states she went to bed and the rash seemed to be stable. She did take her p.m. medicines which include lisinopril but states she vomited these. She did not feel they were absorbed. When she awakened this a.m. she noted edema of her face and lips as well as increase in rash on her arms and legs. Her skin felt hot with a red erythemic rash covering most areas of her body. Thus she presented again to the office of [facility]. She was felt to be having an allergic reaction with no response to oral medicines. She was then admitted for IV steroids and IV Benadryl. Thought was that her allergy might be one of her other medications to include lisinopril. All medicines were discontinued. She had been on mupirocin cream for her breast abscess which was also discontinued. At the time of this exam patient continues to feel itchy and has been started on IV Benadryl. She is eating without any nausea or vomiting. She denies chest pain and shortness of breath. She does not feel that the rash is any better. She has received a dose of IV Solu-Medrol and IV Pepcid. Laboratory data shows a normal CBC except for low monocytes. Blood chemistries show potassium of 3.3, sodium 136, and normal renal function. Liver function studies are also normal. Covid and flu test are negative. <Sheela Trujillo 11/21/21 16:37> [facility] History Medical History: Reports:: Arrhythmia, Gastroesophageal Reflux Disease(GERD), Hypertension, Palpitations Denies:: Cancer, Diabetes Mellitus Type 1, Diabetes Mellitus Type 2, MRSA <TrujilloSheela 11/21/21 16:37> *Have you ever received a pneumonia vaccine?: No <TrujilloSheela 11/21/21 16:37> *Have you received a flu vaccine this season?: No <Trujillo,Sheela 11/21/21 16:37> Other Medical History: Reports: Hypothyroidism, Thyroid Disease <Trujillo,Sheela 11/21/21 16:37> Other Surgeries: Yes: Other (Laparoscopic uterine tuck; colonoscopy and EGD 08/2019) <Trujillo,Sheela 11/21/21 16:37> Amputation: No <CassandraSheela 11/21/21 16:37> Fractures: No <TrujilloSheela 11/21/21 16:37> - *Social History Last grade of school completed: High school graduate <TrujilloSheela 11/21/21 16:37> Smoking Status: Never smoker <TrujilloSheela 11/21/21 16:37> Alcohol Intake: never <Trujillo,Sheela 11/21/21 16:37> Alcohol Intake Frequency:: other <CassandraSheela 11/21/21 16:37> Substance Use Type: denies use <Trujillo,Sheela 11/21/21 16:37> *Occupational Status:: employed <CassandraSheela 11/21/21 16:37> Housing: house <CassandraSheela 11/21/21 16:37> Household Members: spouse <Sheela Trujillo 11/21/21 16:37> *Travel in the last 8 weeks: None <Sheela Trujillo 11/21/21 16:37> Family Hx:: Cancer, Heart Attack, Hypertension <Sheela Trujillo 11/21/21 16:37> Review of Systems - Constitutional Denies fever(s) <Sheela Trujillo - 11/21/21 16:37> - Eyes Denies change in vision <Sheela Trujillo - 11/21/21 16:37> -
[2021-11-22 04:00] VITALS: BP 136/69; PULSE 87; RESP 20; TEMP 36.9; O2SAT 97
[2021-11-22 05:02] VITALS: BMI 35.9
--- NOTE | 2021-11-22 07:03 | PC.NURSE ---
PATIENT RESTED WELL THRU THIS RN SHIFT. AT START OF THIS RN SHIFT, NO HIVES OR REDNESS NOTED. AT 0600 PATIENT HAD HIVES AND REDNESS ALONG WITH ITCHING. THIS RN ADMINISTERED BENADRYL ORDERED. NO OTHER CONCERNS AT THIS TIME.
[2021-11-22 08:00] VITALS: BP 117/72; PULSE 62; RESP 18; TEMP 37; O2SAT 96
--- NOTE | 2021-11-22 08:21 | HMH.ACPN2 ---
Internal Medicine - PN: Subj *Date: 11/22/21 *Time: 08:21 Interval history: Patient with no new complaints today, had some itching of skin this morning. Rash has improved slightly. Lip swelling has resolved. Exam Vital signs and Labs for Last 24 Hours: Temp Pulse Resp BP Pulse Ox 98.6 F 62 18 117/72 96 11/22/21 08:00 11/22/21 08:00 11/22/21 08:00 11/22/21 08:00 11/22/21 08:00 Laboratory Results - last 24 hr 11/21/21 13:22: WBC 5.8 D, RBC 5.37, Hgb 15.4, Hct 46.2, MCV 86.1, MCH 28.7, MCHC 33.3, RDW 13.9, Plt Count 319, MPV 8.4, Neut % (Auto) 75.2, Lymph % (Auto) 21.9, [place] % (Auto) 1.5 L, Eos % (Auto) 1.0, Baso % (Auto) 0.5, Neut # (Auto) 4.4, Lymph # (Auto) 1.3, [place] # (Auto) 0.1, Eos # (Auto) 0.1, Baso # (Auto) 0.0 11/21/21 13:22: Sodium 136, Potassium 3.3 L, Chloride 104, Carbon Dioxide 25, Anion Gap 10.3, BUN 12, Creatinine 0.60, Estimated Creat Clear 154, Estimated GFR 110, Est GFR ( Amer) 133, Glucose 105 H, Calcium 8.4, Total Bilirubin 1.0, AST 29, ALT 23, Alkaline Phosphatase 49, Total Protein 6.6, Albumin 3.9, Globulin 2.7, Albumin/Globulin Ratio 1.4 11/21/21 13:40: SARS-CoV-2 (PCR) Not detected, Influenza A Untype (PCR) Not detected, Influenza Type B (PCR) Not detected Vital Signs - 24 hr 11/21/21 13:08 11/21/21 15:11 11/22/21 04:00 Temperature 98.8 F 99.5 F 98.4 F Pulse Rate [Left] 117 H 87 Respiratory Rate 17 18 20 Blood Pressure [Left Arm] 125/69 124/69 136/69 02 Sat by Pulse Oximetry 99 94 L 97 11/22/21 08:00 Temperature 98.6 F Pulse Rate [Left] 62 Respiratory Rate 18 Blood Pressure [Left Arm] 117/72 02 Sat by Pulse Oximetry 96 I & O for Last 24 hours: Intake & Output 11/19/21 11/20/21 11/21/21 11/22/21 23:59 23:59 23:59 23:59 Intake Total 518 / 518 Balance 518 / 518 Weight 176 lb 0.217 oz 178 lb 3.2 oz - Constitutional no acute distress - *Routine HEENT Exam Head: Present: normocephalic Eye: Present: EOMI, PERRL ENT: Present: mucous membranes moist - *Routine Neck Exam Present: supple. Absent: lymphadenopathy - *Routine Respiratory Exam Present: CTA bilaterally - *Routine Cardiovascular Exam Present: RRR - *Routine Abdominal Exam Present: soft, normoactive bowel sounds. Absent: tenderness - *Routine Extremities Exam Absent: cyanosis, clubbing, edema - *Routine Skin Exam Present: urticaria (has improved, still present, mainly on abdomen and legs, no lip swelling), warm - *Routine Neurological Exam Present: alert, oriented X3 Assessment and Plan (1) Allergic reaction caused by a drug Status: Acute Category: Medical Code(s): T78.40XA - Allergy, unspecified, initial encounter (2) Urticaria Status: Acute Category: Medical Code(s): L50.9 - Urticaria, unspecified (3) Hypertension Status: Chronic Category: Medical Code(s): I10 - Essential (primary) hypertension (4) GERD (gastroesophageal reflux disease) Status: Chronic Category: Medical Code(s): K21.9 - Gastro-esophageal reflux disease without esophagitis - Assessment and plan all Dx Assessment and Plan for all problems:: Some improvement, continue current care.
--- NOTE | 2021-11-22 11:49 | PC.NURSE ---
Ths RN called and spoke with Kyung, this am in Dr. Minor's office to request IVF's be d/cd and requested vistaril for pt. Pt is still itching arms and red scattered rash noted. Called and spoke with Dr. Ba and he okayed order for hydrocortisone 1% topically.
[2021-11-22 15:10] VITALS: BP 122/73; PULSE 86; RESP 18; TEMP 37; O2SAT 94
[2021-11-23 04:00] VITALS: BP 132/72; PULSE 68; RESP 16; TEMP 36.6; O2SAT 97
[2021-11-23 05:38] VITALS: BMI 35.9
[2021-11-23 08:00] VITALS: BP 144/75; PULSE 74; RESP 18; TEMP 36.7; O2SAT 95
--- NOTE | 2021-11-23 08:15 | HMH.ACPN2 ---
<Dayan Macias - Last Filed: 11/23/21 08:15> Internal Medicine - PN: Subj *Date: 11/23/21 *Time: 08:15 Interval history: Patient states she is feeling better this morning. She was itching through the night and her Benadryl was changed to hydroxyzine yesterday due to continued itching. Her rash is improved this morning. She still has some swelling in her left hand. She denies any pain. Exam Vital signs and Labs for Last 24 Hours: Temp Pulse Resp BP Pulse Ox 97.9 F 68 16 132/72 97 11/23/21 04:00 11/23/21 04:00 11/23/21 04:00 11/23/21 04:00 11/23/21 04:00 I & O for Last 24 hours: Intake & Output 11/20/21 11/21/21 11/22/21 11/23/21 11:59 11:59 11:59 11:59 Intake Total 878 / 878 600 / 600 Balance 878 / 878 600 / 600 Weight 178 lb 3.2 oz 178 lb - Constitutional no acute distress - *Routine Respiratory Exam Present: CTA bilaterally - *Routine Cardiovascular Exam Present: RRR - *Routine Abdominal Exam Present: soft, normoactive bowel sounds. Absent: tenderness - *Routine Extremities Exam Absent: cyanosis, clubbing, edema - *Routine Skin Exam Comments: Urticaria is improving. She still has a few areas on her arms - *Routine Neurological Exam Present: alert, oriented X3 Assessment and Plan (1) Allergic reaction caused by a drug Status: Acute Category: Medical Code(s): T78.40XA - Allergy, unspecified, initial encounter (2) Urticaria Status: Acute Category: Medical Code(s): L50.9 - Urticaria, unspecified (3) Hypertension Status: Chronic Category: Medical Code(s): I10 - Essential (primary) hypertension (4) GERD (gastroesophageal reflux disease) Status: Chronic Category: Medical Code(s): K21.9 - Gastro-esophageal reflux disease without esophagitis - Assessment and plan all Dx Assessment and Plan for all problems:: Rashes improved. Possible discharge home today on oral medications. Will discuss with Dr. Ba. <Kannan Ba - Last Filed: 11/23/21 09:04> Internal Medicine - PN: Subj *Date: 11/23/21 *Time: 09:04 Exam Vital signs and Labs for Last 24 Hours: Temp Pulse Resp BP Pulse Ox 97.9 F 68 16 132/72 97 11/23/21 04:00 11/23/21 04:00 11/23/21 04:00 11/23/21 04:00 11/23/21 04:00 I & O for Last 24 hours: Intake & Output 11/20/21 11/21/21 11/22/21 11/23/21 23:59 23:59 23:59 23:59 Intake Total 518 / 518 960 / 960 Balance 518 / 518 960 / 960 Weight 176 lb 0.217 oz 178 lb 3.2 oz 178 lb Assessment and Plan (1) Allergic reaction caused by a drug Status: Acute Category: Medical Code(s): T78.40XA - Allergy, unspecified, initial encounter (2) Urticaria Status: Acute Category: Medical Code(s): L50.9 - Urticaria, unspecified (3) Hypertension Status: Chronic Category: Medical Code(s): I10 - Essential (primary) hypertension (4) GERD (gastroesophageal reflux disease) Status: Chronic Category: Medical Code(s): K21.9 - Gastro-esophageal reflux disease without esophagitis - Assessment and plan all Dx Assessment and Plan for all problems:: Saw patient, agree with above note. She has improved, paln discharge this afternoon after 1 pm Solumedrol dose.
[2021-11-23 12:00] VITALS: BP 170/77; PULSE 68; RESP 18; TEMP 36.8; O2SAT 100
--- NOTE | 2021-11-23 14:51 | HMH.PHAINT ---
DISCHARGE MEDICATION COUNSELING PROVIDED, DISCUSSED STOPPING LISINOPRIL, CLINDAMYCIN, AND CYCLOBENZAPRINE. ALSO DISCUSSED THE ADDITION OF AMLODIPINE (DAILY, WATCH FOR LOWER LEG SWELLING, DIZZINESS, LIGHTHEADEDNESS), FAMOTIDINE (TWICE DAILY), DEXAMETHASONE(TWICE DAILY, TAKE WITH FOOD, TRY TO TAKE EARLIER IN THE DAY IT MAY KEEP HER UP), AND HYDROXYZINE(ANTICHOLINERGIC EFFECTS, HOW TO TAKE). PATIENT ASKED IF HER SYNTHROID WAS RESTARTED AND HOW SHE SHOULD TAKE IT WITH REGARD TO NEW MEDICATIONS. SHE WAS ADVISED IT WAS RESTARTED AND TO TAKE IT UPON WAKING UP AND TAKE HER MORNING MEDS AN HOUR OR SO LATER.
--- NOTE | 2021-11-25 21:25 | HMH.DCSUM ---
General - General Admission date:: 11/21/21 Discharge date: 11/23/21 HPI HPI: Ms. Hayden is a 41-year-old female with a history of esophageal reflux, and hypothyroidism, who presented to the office of [facility] on 11/21/2021 with worsening of a rash. She was actually seen in the emergency room on 09/19/2022 and given IV Benadryl and Solu-Medrol and discharged home. Thought at that time was that she was allergic to clindamycin which she had been taking for an abscess beneath her right breast. She was seen again in the office on 11/20/2021 at which time her rash seemed to be better. She denied any difficulty with breathing or chest pain. She was instructed to continue with Benadryl as needed. In the p.m. of the same day she called and stated her rash seemed to be reoccurring and spreading. She noted some swelling over one of her eyes as well as rash on her legs and arms. She was thus started on a Medrol Dosepak. She states she went to bed and the rash seemed to be stable. She did take her p.m. medicines which include lisinopril but states she vomited these. She did not feel they were absorbed. When she awakened this a.m. she noted edema of her face and lips as well as increase in rash on her arms and legs. Her skin felt hot with a red erythemic rash covering most areas of her body. Thus she presented again to the office of [facility]. She was felt to be having an allergic reaction with no response to oral medicines. She was then admitted for IV steroids and IV Benadryl. Thought was that her allergy might be one of her other medications to include lisinopril. All medicines were discontinued. She had been on mupirocin cream for her breast abscess which was also discontinued. At the time of this exam patient continues to feel itchy and has been started on IV Benadryl. She is eating without any nausea or vomiting. She denies chest pain and shortness of breath. She does not feel that the rash is any better. She has received a dose of IV Solu-Medrol and IV Pepcid. Laboratory data shows a normal CBC except for low monocytes. Blood chemistries show potassium of 3.3, sodium 136, and normal renal function. Liver function studies are also normal. Covid and flu test are negative. Hospital Course Hospital Course: The patient was started on IV Solu-Medrol 125 mg every 8 hours along with IV Pepcid and IV Benadryl. Her rash did improve throughout her stay and her lip swelling resolved. Her Benadryl was changed to hydroxyzine due to continued itching. By 11/23/2021, she was stable to be discharged home after her Solu-Medrol dose and was discharged on Pepcid, hydroxyzine, and dexamethasone. She will follow-up in the office with Dr. Ba. Objective Vital signs: Temp Pulse Resp BP Pulse Ox 98.3 F 68 18 170/77 H 100 11/23/21 12:00 11/23/21 12:00 11/23/21 12:00 11/23/21 12:11/23/21 12:00 Narrative: - Constitutional no acute distress - *Routine Respiratory Exam Present: CTA bilaterally - *Routine Cardiovascular Exam Present: RRR - *Routine Abdominal Exam Present: soft, normoactive bowel sounds. Absent: tenderness - *Routine Extremities Exam Absent: cyanosis, clubbing, edema - *Routine Skin Exam Comments: Urticaria is improving. She still has a few areas on her arms - *Routine Neurological Exam Present: alert, oriented X3 DS: Diagnosis - Discharge Diagnosis (1) Allergic reaction caused by a drug Status: Acute (2) Urticaria Status: Acute (3) Hypertension Status: Chronic (4) GERD (gastroesophageal reflux disease) Status: Chronic Discharge Plan - Patient Discharge Instructions ACTIVITY: Continue current activity DIET: continue same diet Patient Instructions: DI for Hives, DI for General Allergic Reactions, DI for Adverse Drug Reaction -- Allergic - Follow up Plan Follow up with: Kannan Ba MD [Primary Care Provider] - 11/27
== END 2021-11-23 15:20 | disposition home or self-care (01) ==
PROVIDERS: Admitting Provider Family Medicine; PCP Family Medicine; Visit Provider Family Medicine
DX: L27.1 Localized skin eruption due to drugs and medicaments taken internally (principal); T36.8X5A Adverse effect of other systemic antibiotics, initial encounter; Z20.822 Contact with and (suspected) exposure to COVID-19; I10 Essential (primary) hypertension; K21.9 Gastro-esophageal reflux disease without esophagitis
CPT/HCPCS: 36415; 80053; 85025; C9803; G0378; U0003; U0005

== ENCOUNTER 2021-11-29 09:01 | Emergency (ER) | payer BC, SELFPAY ==
[2021-11-29] VITALS (12 sets, daily range): BP systolic 139–188; BP diastolic 95–122; PULSE 72–93; RESP 16–19; TEMP 36.6–36.8; O2SAT 96–98; BMI 30.4
--- NOTE | 2021-11-29 09:38 | HMH.EDUTC ---
[facility] [place] Disposition Condition on Discharge: Good Time of Disposition: 09:43 <Jacqueline Pineda - Last Filed: 11/29/21 09:38> <Alireza Friend - Last Filed: 11/29/21 21:43> Clinical Impression: Shortness of breath Disposition: Home, Self-Care Additional Instructions: Please follow-up with Dr. Ariza and please take your amlodipine in the morning time as opposed to the evenings. Please start taking bisoprolol and please return to the emergency department with any new or concerning symptoms including fainting, chest pain, shortness of breath or any other new or concerning symptoms. Cardiology will discuss results of Holter monitor with you. Prescriptions: Bisoprolol Fumarate [Bisoprolol 5mg Tablet] 10 mg PO DAILY #28 tab Transmission Status: Received by [facility] Referrals: Kannan Ba MD [Primary Care Provider] - Keith Ariza MD [Staff Physician] - Medical Decision Making - Yonathan Inquiry Pt receiving controlled substance: No Yonathan was queried for this patient: No <Jacqueline Pineda - Last Filed: 11/29/21 09:38> - Lab Data Result diagrams: 11/29/21 09:55 11/29/21 09:55 <Alireza Friend - Last Filed: 11/29/21 21:43> Vital Signs: 11/29/21 09:21 11/29/21 10:02 11/29/21 10:25 Temperature 97.8 F Temperature Source Oral Pulse Rate 87 Pulse Rate [Right Brachial] 92 H 93 H Respiratory Rate 19 18 18 Blood Pressure 141/97 H Blood Pressure [Right Arm] 153/99 H 188/122 H Blood Pressure Mean 111 Blood Pressure Mean [Right Arm] 117 144 Blood Pressure Source Blood Pressure Source [Right Arm] Automatic Cuff Blood Pressure Position Blood Pressure Position [Right Arm] Sitting 02 Sat by Pulse Oximetry 98 98 97 Oxygen Delivery Method Room Air Room Air 11/29/21 10:30 11/29/21 10:32 11/29/21 11:00 Temperature Temperature Source Pulse Rate 87 86 Pulse Rate [Right Brachial] 86 Respiratory Rate 18 18 16 Blood Pressure 145/97 H 149/100 H Blood Pressure [Right Arm] 145/97 H Blood Pressure Mean 110 120 Blood Pressure Mean [Right Arm] 113 Blood Pressure Source Blood Pressure Source [Right Arm] Blood Pressure Position Blood Pressure Position [Right Arm] 02 Sat by Pulse Oximetry 97 96 98 Oxygen Delivery Method Room Air 11/29/21 11:30 11/29/21 12:00 11/29/21 12:30 Temperature Temperature Source Pulse Rate 87 82 89 Pulse Rate [Right Brachial] Respiratory Rate 18 18 18 Blood Pressure 172/114 H 142/96 H 188/121 H Blood Pressure [Right Arm] Blood Pressure Mean 133 118 139 Blood Pressure Mean [Right Arm] Blood Pressure Source Blood Pressure Source [Right Arm] Blood Pressure Position Blood Pressure Position [Right Arm] 02 Sat by Pulse Oximetry 98 97 97 Oxygen Delivery Method 11/29/21 13:00 11/29/21 13:35 11/29/21 13:54 Temperature 98.3 F Temperature Source Pulse Rate 90 82 72 Pulse Rate [Right Brachial] Respiratory Rate 18 18 16 Blood Pressure 156/99 H 139/95 H 139/95 H Blood Pressure [Right Arm] Blood Pressure Mean 131 109 Blood Pressure Mean [Right Arm] Blood Pressure Source Automatic Cuff Blood Pressure Source [Right Arm] Blood Pressure Position Sitting Blood Pressure Position [Right Arm] 02 Sat by Pulse Oximetry 98 97 Oxygen Delivery Method Room Air - Lab Data Lab Results 11/29/21 09:55: WBC 17.0 H, RBC 5.27, Hgb 14.9, Hct 45.3, MCV 86.0, MCH 28.3, MCHC 33.0, RDW 14.5, Plt Count 390, MPV 8.3, Neut % (Auto) 86.0 H, Lymph % (Auto) 8.7 L, [place] % (Auto) 4.0, Eos % (Auto) 0.2, Baso % (Auto) 1.2, Neut # (Auto) 14.7 H, Lymph # (Auto) 1.5, [place] # (Auto) 0.7, Eos # (Auto) 0.0, Baso # (Auto) 0.2, Total Counted 100, Neutrophils % (Manual) 91 H, Lymphocytes % (Manual) 7 L, Monocytes % (Manual) 2, Platelet Estimate Normal, RBC Morphology Not Reportable 11/29/21 09:55: Sodium 131 L, Potassium 3.8, Chloride 96 L, Carbon Dioxide 27, Anion Gap 11.8, BUN 13, Creatinine 0.50 L, Estimated Cre
--- NOTE | 2021-11-29 09:53 | ECG_ITS ---
APPROVED REPORT Exam: Resting ECG HR:90 bpm ECG Measurements Heart Rate 90 AXES [place] 109 P 45 QRSd 82 QRS 6 QT 386 T 17 QTc 434 Conclusion SINUS RHYTHM WITH SHORT [place] INTERVAL LEFT ATRIAL ENLARGEMENT [-0.15mV P-WAVE IN V1/V2] ABNORMAL ECG UNCONFIRMED REPORT Electronically signed by : Paramjit Hastings MD 11/29/2021 21:55:10
--- NOTE | 2021-11-29 10:02 | XR_ITS ---
FINAL REPORT CLINICAL HISTORY: palpatations COMPARISON: June 16, 2021 FINDINGS: The heart size is normal. The mediastinum is normal. There is no focal infiltrate or edema. There are no pleural effusions. There is no pneumothorax. There is no osseous abnormality. IMPRESSION: No acute cardiopulmonary process Reviewed, Interpreted and Dictated by Jose Walters MD Transcribed by Dev Shelton Authenticated by Jose Walters MD on 11/29/2021 11:15:02 AM [facility]
--- NOTE | 2021-11-29 10:09 | HMH.EDGENADL ---
ED Disposition Clinical Impression: Shortness of breath Disposition: Still a Patient Condition on Discharge: Good Additional Instructions: Please follow-up with Dr. Ariza and please take your amlodipine in the morning time as opposed to the evenings. Please start taking bisoprolol and please return to the emergency department with any new or concerning symptoms including fainting, chest pain, shortness of breath or any other new or concerning symptoms. Cardiology will discuss results of Holter monitor with you. Prescriptions: Bisoprolol Fumarate [Bisoprolol 5mg Tablet] 10 mg PO DAILY #28 tab Transmission Status: Pending to [facility] Referrals: Kannan Ba MD [Primary Care Provider] - Keith Ariza MD [Staff Physician] - - Critical Care Critical Care Time: No Attestation: On 11/29/21, the high probability of a clinically significant, sudden or life threatening deterioration of the following system(s) required my full and direct attention, intervention and personal management. The time I documented below is in addition to time spent performing reported procedures but includes the following listed in this critical care notation. Medical Decision Making - Yonathan Inquiry Pt receiving controlled substance: No Vital Signs: 11/29/21 09:21 11/29/21 10:02 11/29/21 10:25 Temperature 97.8 F Temperature Source Oral Pulse Rate 87 Pulse Rate [Right Brachial] 92 H 93 H Respiratory Rate 19 18 18 Blood Pressure 141/97 H Blood Pressure [Right Arm] 153/99 H 188/122 H Blood Pressure Mean 111 Blood Pressure Mean [Right Arm] 117 144 Blood Pressure Source [Right Arm] Automatic Cuff Blood Pressure Position [Right Arm] Sitting 02 Sat by Pulse Oximetry 98 98 97 Oxygen Delivery Method Room Air Room Air 11/29/21 10:30 11/29/21 10:32 Temperature Temperature Source Pulse Rate 87 Pulse Rate [Right Brachial] 86 Respiratory Rate 18 18 Blood Pressure 145/97 H Blood Pressure [Right Arm] 145/97 H Blood Pressure Mean 110 Blood Pressure Mean [Right Arm] 113 Blood Pressure Source [Right Arm] Blood Pressure Position [Right Arm] 02 Sat by Pulse Oximetry 97 96 Oxygen Delivery Method Room Air - Lab Data Lab Results 11/29/21 09:55: WBC 17.0 H, RBC 5.27, Hgb 14.9, Hct 45.3, MCV 86.0, MCH 28.3, MCHC 33.0, RDW 14.5, Plt Count 390, MPV 8.3, Neut % (Auto) 86.0 H, Lymph % (Auto) 8.7 L, [place] % (Auto) 4.0, Eos % (Auto) 0.2, Baso % (Auto) 1.2, Neut # (Auto) 14.7 H, Lymph # (Auto) 1.5, [place] # (Auto) 0.7, Eos # (Auto) 0.0, Baso # (Auto) 0.2, Total Counted 100, Neutrophils % (Manual) 91 H, Lymphocytes % (Manual) 7 L, Monocytes % (Manual) 2, Platelet Estimate Normal, RBC Morphology Not Reportable 11/29/21 09:55: Sodium 131 L, Potassium 3.8, Chloride 96 L, Carbon Dioxide 27, Anion Gap 11.8, BUN 13, Creatinine 0.50 L, Estimated Creat Clear 181, Estimated GFR 135, Est GFR ( Amer) 164, Glucose 106 H, Calcium 8.3 L, Troponin I < 0.01 11/29/21 09:55: D-Dimer 0.43 11/29/21 09:55: Free T4 1.04 11/29/21 09:55: TSH 1.15 Result diagrams: 11/29/21 09:55 11/29/21 09:55 Orders (Tests/Meds): ED MEDICATIONS Generic Name Dose Route Start Last Admin Trade Name Freq PRN Reason Stop Dose Admin Sodium Chloride 10 ml 11/29/21 10:02 Sodium Chloride 0.9% 10ml Flush Syringe IV 12/29/21 10:01 NEEDED PRN Maintain IV Site ORDERS Category Date Time Status Consult to Cardiology [CONS] Routine Cons 11/29/21 11:09 Active Troponin I Q3H Lab 11/29/21 11:51 Received Troponin I Q3H Lab 11/29/21 16:15 Ordered Holter Monitor Req by Kushal/ Routine Y 11/29/21 12:26 Ordered - ECG Data Tracing #1 ECG reviewed and interpreted in the emergency department showing shortened MO interval, with concern for delta wave in precordial leads, without significant ST deviation or concern for acute coronary syndrome. Normal sinus rhythm. - JAVAN Score for Non-Stemi Age of Patient: 40-49
[2021-11-29 10:14] LABS: Basophils # 0.2 K/mm3 (0-0.2); Basophils % 1.2 % (0.1-2.0); Eosinophils % 0.2 % (0.1-12.0); Hematocrit 45.3 % (37.0-47.0); Hemoglobin 14.9 g/dL (12.2-16.2); Lymphocytes # 1.5 K/mm3 (0.7-4.5); Lymphocytes % 8.7 % (10-50); Mean Corpuscular Hemoglobin 28.3 pg (27.0-31.2); Mean Platelet Volume 8.3 fl (7.4-10.4); Monocytes # 0.7 K/mm3 (0.1-1.0); Neutrophils # 14.7 K/mm3 (1.8-7.8); Platelet Count 390 K/mm3 (142-424); Red Blood Count 5.27 M/mm3 (4.20-5.40); Red Cell Distribution Width 14.5 % (11.5-17.5)
[2021-11-29 10:20] LABS: MANUAL DIFFERENTIAL MANUAL DIFFERENTIAL (MANUAL DIFF)
[2021-11-29 10:36] LABS: Chloride 96 mmol/L (98-107); Potassium 3.8 mmoL/L (3.5-5.1); Sodium 131 mmol/L (136-145)
[2021-11-29 10:39] LABS: Blood Urea Nitrogen 13 mg/dl (7-17); Creatinine Clearance Estimated 181 mL/min (50-200); Estimated Glomerular Filt Rate 135 ml/min (>60); GFR (African American) 164 ML/MIN (>60)
[2021-11-29 10:40] LABS: Anion Gap 11.8 mEq/L (5-15); Calcium 8.3 mg/dl (8.4-10.2); Carbon Dioxide 27 mmol/L (22.0-30.0); Glucose 106 mg/dl (74-100)
[2021-11-29 10:43] LABS: D-Dimer 0.43 ug/mL (0.0-0.5)
[2021-11-29 10:53] LABS: Troponin I < 0.01 ng/ml (0.00-0.034)
--- NOTE | 2021-11-29 11:06 | PC.NURSE ---
REQUESTING 2 HR TROP , LAB NOTIFIED
--- NOTE | 2021-11-29 11:08 | PC.NURSE ---
Cardiology consulted, he spoke with Rohit Isbell
[2021-11-29 11:16] LABS: Free T4 (Free Thyroxine) 1.04 ng/dl (0.78-2.19)
[2021-11-29 11:30] LABS: Thyroid Stimulating Hormone 1.15 uIU/mL (0.465-4.68)
--- NOTE | 2021-11-29 11:31 | PC.NURSE ---
Rohit Isbell in with pt
[2021-11-29 11:33] LABS: Lymphocytes % 7 % (10-50); Monocytes % 2 % (2-9); Neutrophils % 91 % (42-76); Platelet Estimate Normal; Total Cells Counted 100
--- NOTE | 2021-11-29 12:10 | PC.NURSE ---
2nd troponin drawn and sent to lab. Yvno went to discuss case with Dr. Ariza. Pt updated on POC. No new needs at this time
[2021-11-29 12:35] LABS: Troponin I < 0.01 ng/ml (0.00-0.034)
--- NOTE | 2021-11-29 12:36 | HMH.CNCARD ---
History of Present Illness Consult date: 11/29/21 Requesting physician: Alireza Friend Consult reason: chest pain Chief complaint: Palpitations, HTN, chest pain Additional Medical History:: 1. Hypertension 2. Hypothyroidism 3. Tachycardia/palpitations controlled with beta-watson therapy 4. History of chest pain with past echocardiogram showing normal ejection fraction and CT coronary calcium score of 0. History of present illness: 41-year-old female presents emergency department with history of recently going off her lisinopril, metoprolol and thyroid medications, with patient newly on amlodipine, with several days without significant issues from this, but with patient having palpitations and intermittent shortness of breath today. Initial ECG shows normal sinus rhythm with concern for short ER interval without ST deviations or concern for acute coronary syndrome. Patient has no focal neurologic deficits on physical examination and is asymptomatic upon evaluation and hemodynamically stable aside from hypertension which is nonactionable in the emergency department. CBC, metabolic panel, D-dimer, troponins, chest x-ray obtained in the emergency department as well as TSH and free T4. The above per Dr. Friend, JANNA CASAS Patient confirms events as noted above. She was taken off of lisinopril, metoprolol and thyroid medications for possible allergic reaction in conjunction with use of clindamycin recently for possible right breast infected cyst. She ultimately failed outpatient therapy and required inpatient IV steroids for improvement. She has been on amlodipine since then for blood pressure but still having palpitations and shortness of breath. She had previously been on metoprolol for control of her palpitations and was doing well until the incident recently with hives. Cardiology was consulted for evaluation and recommendations regarding palpitations and blood pressure treatment. Thyroid functions and troponins are normal. Chest x-ray is unremarkable. EKG is sinus rhythm with a short [place] interval which is consistent with prior tracings from last year. [facility] History Medical History: Reports:: Arrhythmia, Gastroesophageal Reflux Disease(GERD), Hypertension, Palpitations Denies:: Cancer, Diabetes Mellitus Type 1, Diabetes Mellitus Type 2, MRSA *Have you ever received a pneumonia vaccine?: No *Have you received a flu vaccine this season?: No Other Medical History: Reports: Hypothyroidism, Thyroid Disease Other Surgeries: Yes: No Previous Surgery, Other (Laparoscopic uterine tuck; colonoscopy and EGD 08/2019) Amputation: No Fractures: No - *Social History Smoking Status: Never smoker Alcohol Intake: never Alcohol Intake Frequency:: other Substance Use Type: denies use *Occupational Status:: employed Housing: house Household Members: spouse *Travel in the last 8 weeks: None Family Hx:: Cancer, Heart Attack, Hypertension Meds Home Medications Medication Instructions Recorded Confirmed Type levothyroxine 25 mcg capsule 25 mcg PO DAILY 12/15/20 11/21/21 History Levonorgestrel/Ethin.estradiol 1 tab PO DAILY 11/20/21 11/21/21 History [Levonor-Eth Estrad 0.1-0.02 mg] Omeprazole 40 mg PO DAILY PRN 11/21/21 11/21/21 History Cholecalciferol (Vitamin D3) 50,000 unit PO WEEKLY 11/22/21 11/22/21 History [Vitamin D3 50,000 unit Cap] Amlodipine Besylate 5 mg PO DAILY #30 tab 11/23/21 Rx Famotidine [Pepcid 20mg Tablet] 20 mg PO BID #60 tab 11/23/21 Rx dexAMETHasone [Dexamethasone] 2 mg PO BID #10 tab 11/23/21 Rx hydrOXYzine pamoate [Vistaril 25mg 25 mg PO Q6H PRN #30 cap 11/23/21 Rx capsule] Bisoprolol Fumarate [Bisoprolol 10 mg PO DAILY #28 tab 11/29/21 Rx 5mg Tablet] Allergies Allergy/AdvReac Type Severity Reaction Status Date / Time No Known Allergies Allergy Verified 03/31/21 09:57 Exam Vital signs and Labs for Last 24 Hours: Temp Pulse Resp BP Pulse Ox 97.8 F 86 18 145/97 H 96 11/29/21 09:21
--- NOTE | 2021-11-29 12:56 | PC.NURSE ---
Called pharmacy for medicine
== END 2021-11-29 13:57 | disposition home or self-care (01) ==
LOC: UTC 09:05 → ER 09:38
PROVIDERS: Emergency Provider Student in an Organized Health Care Education/Training Program; PCP Family Medicine
DX: I16.0 Hypertensive urgency (principal); E03.9 Hypothyroidism, unspecified; R06.02 Shortness of breath; K21.9 Gastro-esophageal reflux disease without esophagitis
CPT/HCPCS: 71045; 80048; 84439; 84443; 84484; 85007; 85025; 85378; 93005; 93225; 93226; 99283

== ENCOUNTER → 2021-12-22 07:34 | Outpatient (CLI) | payer BC, SELFPAY ==
--- NOTE | 2021-12-22 | CA_ITS ---
APPROVED REPORT Exam: Exercise Treadmill Technologist: Darby Diego, Ht: 5 ft 2 in Wt: 189 lbs BSA: 1.87 m2 HR: 80 bpm BP: 142/79 mmHg Medical History Medical History: HTN Medications: Omeprazole,,,,, Levothyroxine,,,,, BisOPROLOL,,,,, Cardiac Risk Factors: HTN, FHX of CAD Stress Test Details Test: Vic HR Resting HR: 102 bpm Max Heart Rate (APMHR): 178.783708 bpm Max HR Achieved: 162 bpm Target HR (85% APMHR): 151.419607 bpm % of APMHR: 91.01 Recovery HR: 144 bpm BP Resting BP: 138/92 mmHg Max BP: 185/95 mmHg Recovery BP: 185.0/95.0 mmHg ECG Clinical Exercise duration: 07:46 min Highest Stage Achieved: Exercise capacity: 10.1 METs Stress ECG Conclusion During vic protocol pt experinced SOA with exertion and lower back pain. No CP noted. No arrhythmias noted. Electronically signed by : Kiel Dalton MD 12/22/2021 12:16:27
--- NOTE | 2021-12-22 07:34 | NM_ITS ---
APPROVED REPORT Exam: Nuclear Stress Test Indication: SOA, HTN, FM HX., FATIGUE, EDEMA Patient Location: Outpatient Stress Tech: Gabrielle Samuels ID Tech:Cande Sanches MARILYNTiesha RT(R)(N) Ht: 4 ft 11 in Wt: 180 lbs Bra Size: 36DD HR: 102 bpm BP: 138/92 mmHg BSA: 1.76 m2 BMI: 36.3 History: SOA, HTN, FM HX., FATIGUE, EDEMA Procedure: Patient exercised on Luis Eduardo protocol 7:46 minutes and sec, resting heart rate 102 bpm, resting blood pressure 138/92 mmHg, with exercise maximum heart rate achived was 160 bpm which is 95 % of the maximum predicted heart rate and blood pressure was 165/100 mmHg. Test was stopped due to soa. Patient has good exercise capacity, achieved 10.1 METs of workload on treadmill, the blood pressure response to exercise was Adequate. Electrocardiogram Resting electrocardiogram shows sinus rhythm, with exercise there is less than 1.[address] segment depression noted from the baseline EKG. The EKG portion of the exercise Myoview is negative for ischemia. Cardiac Stress and Resting SPECT Images: Cardiac Stress and Resting SPECT images were obtained using technetium 99m Myoview 29.7 mCi stress and 10.63 mCi at rest. Gated SPECT for analysis of segmental wall motion and calculation of the ejection fraction also done, cardiac stress and rest SPECT may show uniform myocardial activity without segmental perfusion abnormality, computer derived ejection fraction is over 65% with no regional wall motion abnormality, right ventricle is normal size and contractility. Conclusion: 1. The EKG portion of the exercise Myoview is negative for ischemia, patient has good exercise capacity achieved 10.1 METs of workload on treadmill, the blood pressure response to exercise was adequate, there was no exercise-induced chest discomfort. 2. No scintigraphic evidence of reversible ischemia seen, computer derived ejection fraction is over 65% with no regional wall motion abnormality, right ventricle is normal size and contractility. 3. Normal exercise Myoview study. Electronically signed by : Kiel Dalton MD 12/22/2021 12:19:09
--- NOTE | 2021-12-22 08:58 | CA_ITS ---
APPROVED REPORT EXAM: Comprehensive 2D, Doppler, and color-flow Echocardiogram Duct Layer Helper: Asha Santillan RVT Ht: 5 ft 2 in Wt: 189lbs BSA: 1.87 BP: 132/82 mmHg Indications: SOA,HTN,PALPS,GERD,EDEMA TDS-PT BODY HABITUS 2D Dimensions LVOT 1.81 cm (M/F) 1.5-2.5 LA Volume 20.20 mL LA Volume Index 10.86 mL/m2 (M/F) 16-34 M-Mode Dimensions RVDd 2.27 cm (0.9-2.6) LA Diam 3.75 cm (1.9-4.0) LVDd 3.48 cm (3.5-5.7) Ao Diam 2.38 cm (2.0-3.7) LVDs 2.07 cm (3.5-5.7) IVSd 0.86 cm (0.6-1.1) PWd 0.91 cm (0.6-1.1) EF (Teich) 72.30% FS 40.50% EDV (Teich) 50.20 mL TAPSE 2.06 (<1.7) ESV (Teich) 13.90 mL LV Diastology E Decel Time 107.00 (160-240 msec) E/A Ratio 0.9 MED E' 8.20 (< 7 cm/sec) E'/MED E' Ratio 7.68 (>14) LAT E' 11.30 (<10 cm/sec) E/LAT E' Ratio 5.58 (>14) Mitral Valve MV E Max Carrillo. 63.00 (40-130 cm/s) MV A Velocity 70.00 (40-130 cm/s) E/A Ratio 0.90 MV Decel. Time 107.00 (160-240 ms) MV PHT 31.00 ms Pulmonary Valve PV Peak Velocity 100.00 (50-150 cm/s) Left Ventricle Left atrium is mildly enlarged, left ventricle is normal size, mild concentric left ventricular hypertrophy, visually estimated ejection fraction 55% with no regional wall motion abnormality, grade 1 diastolic dysfunction seen without tissue Doppler evidence of raise left atrial pressure. Right atrium and right ventricle mildly enlarged with normal contractility. Aortic Valve Aortic valve is grossly normal, there is no aortic stenosis or aortic insufficiency. Mitral Valve Mitral valve grossly normal, there is trace mitral regurgitation. Tricuspid Valve Tricuspid grossly normal, there is trace tricuspid regurgitation, tricuspid regurgitation jet velocity is inadequate for calculation of the right ventricular systolic pressure. Pulmonic Valve Pulmonic valve is poorly visualized. Great Vessels Aortic root is normal size. Inferior vena cava is poorly visualized. Pericardium No significant pericardial effusion noted. Conclusion 1. Mild biatrial normal, normal left ventricular size, mild concentric left ventricular hypertrophy, visually estimated ejection fraction 55% with no regional wall motion abnormality, grade 1 diastolic dysfunction seen without tissue Doppler evidence of raise left atrial pressure. 2. Mildly enlarged right ventricle with normal contractility. 3. Trace mitral and tricuspid regurgitation. 4. No significant pericardial effusion noted. 5. Inferior vena cava is poorly visualized. Electronically signed by : Kiel Dalton MD 12/22/2021 11:04:01
== END ==
PROVIDERS: PCP Family Medicine; Visit Provider Physician Assistant
DX: R06.00 Dyspnea, unspecified (principal); R42 Dizziness and giddiness; I10 Essential (primary) hypertension; R60.9 Edema, unspecified
CPT/HCPCS: 78452; 93017; 93306; A9502

== ENCOUNTER → 2021-12-26 10:52 | Outpatient (CLI) | payer BC, SELFPAY ==
[2021-12-26 12:34] LABS: Chloride 105 mmol/L (98-107)
[2021-12-26 12:35] LABS: Potassium 4.7 mmoL/L (3.5-5.1); Sodium 136 mmol/L (136-145)
[2021-12-26 12:37] LABS: Blood Urea Nitrogen 13 mg/dl (7-17); Estimated Glomerular Filt Rate 92 ml/min (>60); GFR (African American) 111 ML/MIN (>60)
[2021-12-26 12:38] LABS: Anion Gap 9.7 mEq/L (5-15); Calcium 8.8 mg/dl (8.4-10.2); Carbon Dioxide 26 mmol/L (22.0-30.0); Glucose 89 mg/dl (74-100)
[2021-12-26 12:47] LABS: NT Pro Brain Natriuretic Pep. 33.3 pg/mL (0-125)
== END ==
PROVIDERS: PCP Physician Assistant; Visit Provider Internal Medicine Cardiovascular Disease
DX: R06.00 Dyspnea, unspecified (principal); R07.89 Other chest pain; R00.0 Tachycardia, unspecified; R42 Dizziness and giddiness; R55 Syncope and collapse; I10 Essential (primary) hypertension; R60.9 Edema, unspecified; G47.33 Obstructive sleep apnea (adult) (pediatric); R40.0 Somnolence
CPT/HCPCS: 36415; 80048; 83880; 95806; G0399

== ENCOUNTER → 2022-01-05 10:37 | Outpatient (CLI) | payer BC, SELFPAY ==
--- NOTE | 2022-01-05 10:46 | XR_ITS ---
FINAL REPORT CLINICAL HISTORY: ACUTE BILATERAL BACK PAIN WITOUT SCIATICA FINDINGS: LUMBAR SPINE 5 views of the lumbar spine were obtained. There is no evidence of fracture or dislocation. The vertebral alignment is normal. There are mild degenerative changes with osteophytes. No paraspinous soft tissue abnormalities identified. IMPRESSION: Mild degenerative change without acute bony abnormality. Reviewed, Interpreted and Dictated by Jay Glass III, MD Transcribed by Sayda Israel Authenticated by Jay Glass III, MD on 01/05/2022 01:06:48 PM [facility]
== END ==
PROVIDERS: PCP Physician Assistant; Visit Provider Physician Assistant
DX: M54.50 Low back pain, unspecified (principal)
CPT/HCPCS: 72110

== ENCOUNTER → 2022-02-15 16:08 | Outpatient (CLI) | payer BC, SELFPAY ==
[2022-02-15 17:24] LABS: Anion Gap 12.7 mEq/L (5-15); Blood Urea Nitrogen 14 mg/dl (7-17); Calcium 9.7 mg/dl (8.4-10.2); Carbon Dioxide 28 mmol/L (22.0-30.0); Chloride 100 mmol/L (98-107); Estimated Glomerular Filt Rate 79 ml/min (>60); GFR (African American) 95 ML/MIN (>60); Glucose 98 mg/dl (74-100); Potassium 3.7 mmoL/L (3.5-5.1); Sodium 137 mmol/L (136-145)
[2022-02-15 17:32] LABS: NT Pro Brain Natriuretic Pep. 49.8 pg/mL (0-125)
== END ==
PROVIDERS: Internal Medicine Cardiovascular Disease; Visit Provider Internal Medicine
DX: R07.9 Chest pain, unspecified (principal); R00.0 Tachycardia, unspecified; R00.2 Palpitations; I10 Essential (primary) hypertension; E03.9 Hypothyroidism, unspecified; G47.33 Obstructive sleep apnea (adult) (pediatric); E66.9 Obesity, unspecified; Z68.37 Body mass index [BMI] 37.0-37.9, adult
CPT/HCPCS: 36415; 80048; 83880

== ENCOUNTER 2022-04-13 15:58 | Emergency (ER) | payer BC, SELFPAY ==
[2022-04-13 16:20] VITALS: BP 140/80; PULSE 117; RESP 18; TEMP 37.8; O2SAT 97; BMI 37.3
[2022-04-13 16:33] LABS: Adenovirus,PCR Not Detected (NotDetected); Bordetella Pertussis Not Detected (NotDetected); Chlamydophila Pneumoniae, PCR Not Detected (NotDetected); Coronavirus 229E Not Detected (NotDetected); Coronavirus NL63 Not Detected (NotDetected); Coronavirus OC43 Not Detected (NotDetected); Coronovirus HKU1,PCR Not Detected (NotDetected); Human Metapneumovirus Not Detected (NotDetected); Influenza A, PCR Not Detected (NotDetected); Influenza AH1, 2009 Not Detected (NotDetected); Influenza AH1, PCR Not Detected (NotDetected); Influenza AH3,PCR Not Detected (NotDetected); Influenza B, PCR Not Detected (NotDetected); Mycoplasma Pneumoniae, PCR Not Detected (NotDetected); Parainfluenza 1, PCR Not Detected (NotDetected); Parainfluenza 2, PCR Not Detected (NotDetected); Parainfluenza 3, PCR Not Detected (NotDetected); Parainfluenza 4, PCR Not Detected (NotDetected); Respiratory Syncytial Virus Not Detected (NotDetected); Rhinovirus/Enterovirus Not Detected (NotDetected)
--- NOTE | 2022-04-13 16:39 | HMH.EDUTC ---
[facility] Disposition Clinical Impression: Cough Qualifiers: Cough type: unspecified Qualified Code(s): R05.9 - Cough, unspecified Disposition: Home, Self-Care Condition on Discharge: Good Instructions: Cough, DI for COVID-19 (Suspected or Confirmed ), Preventing the Spread of Coronavirus Discharge Instructions Additional Instructions: *Monitor Temp, Over the counter Motrin or Tylenol as directed/as needed Tylenol every 4 hours and Motrin every 6 hours (as long as your family doctor has told you that you can take it) for fever or pain. and straight to ER if unable to lower temp less than 101.0 after medication given *Warm salt water gargles may help to soothe the throat *Throat Lozenges *Warm fluids like tea with honey may help to soothe the throat *Sleep elevated *Humidifier/Vaporizer Follow up IMMEDIATELY for new or worsening symptoms or no Noticeable improvement over the next 48-72 hours. 911 for difficulty breathing or swallowing You were tested for today for COVID19 your test result should be back in the next 24-48 hours, you may check your results on the [facility] My Health Portal Make sure to take your Vitamins Vit. C Vit D and Zinc if you can take them Prescriptions: Benzonatate [Benzonatate 100mg cap] 100 mg PO Q8HP PRN #15 cap PRN Reason: Cough Transmission Status: Pending to Clinic Pharm[facility] Referrals: Dayan Macias PA [Primary Care Provider] - As needed Time of Disposition: 16:50 Medical Decision Making - Yonathan Inquiry Pt receiving controlled substance: No Yonathan was queried for this patient: No Vital Signs: 04/13/22 16:20 Temperature 100.1 F H Temperature Source Oral Pulse Rate [Right Brachial] 117 H Respiratory Rate 18 Blood Pressure [Right Arm] 140/80 Blood Pressure Mean [Right Arm] 100 Blood Pressure Source [Right Arm] Automatic Cuff Blood Pressure Position [Right Arm] Sitting 02 Sat by Pulse Oximetry 97 Oxygen Delivery Method Room Air Orders (Tests/Meds): ORDERS Category Date Time Status Full Resp Panel w/COVID ([facility]) Routine Lab 04/13/22 16:26 Received Rapid Strep Scrn Group A [Strep Scrn Group A (Rapid)] Lab 04/13/22 16:25 Received Stat [facility] HPI - General Stated complaint: cough and headache Time Seen by Provider: 04/13/22 16:39 Mode of Arrival: Ambulatory Source of Information: Patient Limitations: No Limitations Description of Symptoms (Recalled from Triage Doc. by RN): PATIENT C/O HEADACHE AND COUGH SINCE LAST NIGHT HEENT Symptoms (Recalled from RN notes): Yes Resp Symptoms (Recalled from RN notes): Yes Skin Symptoms (Recalled from RN notes): No MS Symptoms (Recalled from RN notes): No Functional Status (Recalled from RN notes): WNL - History of Present Illness Provider Complaint: Patient states that she started with cough yesterday evening and it continued throughout the night States that she started having headache after coughing episode and has continued to feel achy today with cough and mild headache States that she was around her mother that had COVID a couple weeks go but not been around anyone that she is aware of States that she is one alot of medication and not sure what to take for the cough - Related Data Home Medications Medication Instructions Recorded Confirmed Omeprazole 40 mg PO DAILY PRN 11/21/21 04/13/22 Spironolactone [Spironolactone 25 mg PO DAILY 04/13/22 04/13/22 25mg Tablet] bisoproloL fumarate [Bisoprolol 10 mg PO .as directed 04/13/22 04/13/22 Fumarate] Previous Rx's Medication Instructions Recorded Benzonatate [Benzonatate 100mg 100 mg PO Q8HP PRN #15 cap 04/13/22 cap] Allergies Allergy/AdvReac Type Severity Reaction Status Date / Time lisinopril Allergy Intermediate rash Verified 03/27/22 14:18 - Worker's Comp Is this a Worker's Comp case?: No [facility] History - Hepatitis A Screen Attestation statement:: This patient has been screened for Hepatitis A risk factors. Medical History:
[2022-04-13 16:49] LABS: Strep Scrn Group A (Rapid) Negative (Negative)
[2022-04-13 16:52] VITALS: BP 140/80; PULSE 117; RESP 18; TEMP 37.8; O2SAT 97
[2022-04-13 18:09] LABS: Coronavirus 19, PCR Detected (NotDetected)
== END 2022-04-13 16:58 | disposition home or self-care (01) ==
PROVIDERS: Emergency Provider Nurse Practitioner; PCP Physician Assistant
DX: U07.1 COVID-19 (principal); R00.2 Palpitations; R06.02 Shortness of breath; R53.82 Chronic fatigue, unspecified; R00.0 Tachycardia, unspecified; I10 Essential (primary) hypertension; I49.9 Cardiac arrhythmia, unspecified; K21.9 Gastro-esophageal reflux disease without esophagitis; Z88.8 Allergy status to other drugs, medicaments and biological substances; Z82.49 Family history of ischemic heart disease and other diseases of the circulatory system; Z80.9 Family history of malignant neoplasm, unspecified
CPT/HCPCS: 87430; 87581; 87632; 87798; 99213; C9803; G0463; U0003; U0005

== ENCOUNTER → 2022-08-16 08:14 | Outpatient (CLI) | payer BC, SELFPAY ==
--- NOTE | 2022-08-16 08:23 | MM_ITS ---
PROCEDURE INFORMATION: Exam: MG Bilateral Screening 3D Mammography Exam date and time: 08/16/2022 8:24 AM Age: 41 years old Clinical indication: Screening examination TECHNIQUE: Imaging protocol: Bilateral Screening tomosynthesis and 2D mammography including computer-aided detection (CAD) when performed. COMPARISON: No relevant prior studies available. FINDINGS: MAMMOGRAPHY: Breast composition: There are scattered areas of fibroglandular density. Mass: None. Architectural distortion: None. Calcifications: No suspicious calcifications. Asymmetric density: None. Skin thickening: None. Axillary adenopathy: None. IMPRESSION: No mammographic evidence of malignancy. Annual screening is recommended unless otherwise clinically indicated. ASSESSMENT: BI-RADS Category 1: Negative
== END ==
PROVIDERS: PCP Physician Assistant; Visit Provider Family Medicine
DX: Z12.31 Encounter for screening mammogram for malignant neoplasm of breast (principal)
CPT/HCPCS: 77063; 77067

== ENCOUNTER → 2023-08-05 15:55 | Outpatient (CLI) | payer BC, SELFPAY | LOC: RT 15:55 | PROVIDERS: PCP Physician Assistant; Visit Provider Physician Assistant | DX: R00.2 Palpitations (principal); I10 Essential (primary) hypertension; K21.9 Gastro-esophageal reflux disease without esophagitis; R06.00 Dyspnea, unspecified; R42 Dizziness and giddiness | CPT/HCPCS: 93270 ==

== ENCOUNTER → 2023-08-23 14:32 | Outpatient (CLI) | payer BC, SELFPAY ==
--- NOTE | 2023-08-23 14:37 | MM_ITS ---
PROCEDURE INFORMATION: Exam: MG Bilateral Screening 3D Mammography Exam date and time: 08/23/2023 2:38 PM Age: 42 years old Clinical indication: Screening examination TECHNIQUE: Imaging protocol: Bilateral Screening tomosynthesis and 2D mammography including computer-aided detection (CAD) when performed. COMPARISON: MG MM DIG SCREENING MAMM BI W/CAD 08/16/2022 8:24 AM FINDINGS: MAMMOGRAPHY: Breast composition: There are scattered areas of fibroglandular density. Mass: None. Architectural distortion: None. Calcifications: No suspicious calcifications. Asymmetric density: None. Skin thickening: None. Axillary adenopathy: None. IMPRESSION: No mammographic evidence of malignancy. Annual screening is recommended unless otherwise clinically indicated. ASSESSMENT: BI-RADS Category 1: Negative
== END ==
PROVIDERS: PCP Physician Assistant; Visit Provider Physician Assistant
DX: Z12.31 Encounter for screening mammogram for malignant neoplasm of breast (principal)
CPT/HCPCS: 77063; 77067

== ENCOUNTER 2024-08-28 09:44 | Outpatient (CLI) | payer BC, SELFPAY ==
--- NOTE | 2024-08-28 09:47 | MM_ITS ---
PROCEDURE INFORMATION: Exam: MG Bilateral Screening 3D Mammography Exam date and time: 08/28/2024 9:42 AM Age: 43 years old Clinical indication: Screening examination TECHNIQUE: Imaging protocol: Bilateral Screening tomosynthesis and 2D mammography including computer-aided detection (CAD) when performed. COMPARISON: 1. MG MM DIG SCREENING MAMM BI W/CAD 08/23/2023 2:38 PM 2. MG MM DIG SCREENING MAMM BI W/CAD 08/16/2022 8:24 AM FINDINGS: MAMMOGRAPHY: Breast composition: There are scattered areas of fibroglandular density. Mass: None. Architectural distortion: None. Calcifications: No suspicious calcifications. Asymmetric density: None. Skin thickening: None. Axillary adenopathy: None. IMPRESSION: No mammographic evidence of malignancy. Annual screening is recommended unless otherwise clinically indicated. ASSESSMENT: BI-RADS Category 1: Negative.
== END 2024-08-28 23:59 | disposition home or self-care (01) ==
LOC: RAD 09:45
PROVIDERS: PCP Physician Assistant; Visit Provider Physician Assistant
DX: Z12.31 Encounter for screening mammogram for malignant neoplasm of breast (principal)
CPT/HCPCS: 77063; 77067

== ENCOUNTER 2024-10-15 11:33 | Outpatient (CLI) | payer BC, SELFPAY ==
--- NOTE | 2024-10-15 11:40 | XR_ITS ---
FINAL REPORT CLINICAL HISTORY: INJURY OF RT ANKLE states previous injury, no recent injury. states weather has made ankle start hurting again FINDINGS: Right ankle Three views were obtained. There is no fracture or dislocation. The joint spaces appear normal. No soft tissue abnormality is identified. There is a small plantar calcaneal spur. IMPRESSION: No acute process. Reviewed, Interpreted and Dictated by [facility] Walters MD Transcribed by Sheela Winters Authenticated and [facility]
== END 2024-10-15 23:59 | disposition home or self-care (01) ==
LOC: RAD 11:35
PROVIDERS: PCP Physician Assistant; Visit Provider Physician Assistant
DX: M25.571 Pain in right ankle and joints of right foot (principal); S99.911A Unspecified injury of right ankle, initial encounter
CPT/HCPCS: 73610

== ENCOUNTER 2025-10-04 10:33 | Outpatient (CLI) | payer BC, SELFPAY ==
--- OUTSIDE RECORDS SUMMARY | 2024-10-15 05:30 | XMS_ITS ---
Author Organization [facility] Address [address] [place] [id number] Care Team Providers Care Nursing Instructor Name Role Phone Yordan Minor Primary Care Provider Dayan Macias [phone] Allergies Allergen (clinical drug ingredient) Drug/Non Drug Allergy documented on EMR Reaction Allergy Type Onset Date Status lisinopril Lisinopril hives Drug Allergy Activ e clindamycin Clindamycin rash Drug Allergy Act sanket Results Component Value Reference Range Notes X ray : Ankle, right Reviewed date:10/16/2024 11:07:12 AM Interpretation:Negative Performing Lab: Notes/Report: Negative REASON FOR VISIT hurt ankle right Medications Medication SIG (Take, Route, Frequency, Duration) Notes Start Date End Date Status Omeprazole 40 MG 1 cap(s) orally once a day; Duration: 30 day(s) Active amLODIPine Besylate 5 MG Take 1 tablet b y mouth once daily; Duration: 30 Active Synthroid 25 MCG 1 tab(s) orally once a day; Duration: 90 days Active Vital Signs Blood pressure systolic 128 mm Hg 10/15/19 25 Blood pressure diastolic 80 mm Hg 025 Heart Rate 105 /min 10/15/2024 Height 60 in 10/15/2024 Weight 193 lbs 10/15/2024 BMI 37.69 kg/m2 10/15/2024 Encounters Encounter Location Date Provider Diagnosis [facility] [address] [place] [phone] 10/15/2024 Dayan Macias Injury of right ankl e, initial encounter S99.911A Assessments Encounter Date Diagnosis (ICD Code) Assessment Notes Treatment Notes Treatment Clinical Notes Section Notes 10/15/2024 Injury of right ankle, initial encounter (ICD-10 - S99.911A) Will RICE the ankle and get an x-ray. Plan Of Treatment Treatment Notes Assessment Notes Injury of right ankle, initial encounter Will RICE the ankle and get an x-ray. Next Appt Details Follow Up: via phone to repo rt test results, Reason: Progress Notes * LINDY REINOSO ANNDOB:1980 (44 yo F)Acc No.[id number]:10/15/2024 Progress Notes Patient: LINDY DUMONT ANN Provider: RUDY Chavez :1980 A ge:43 Y S ex:Female Date:10/15/2024 Address:[address] [place] [address], [id number] Pcp:Yordan Minor Subjective: * Chief Complaints: * 1 . Hurt ankle right. * HPI: A nkle/Foot: 43 year old female presents with c/o Pain P t presents today with c/o pain in the right ankle. Pt sts that she fell through ice and felt her ankle twist. Pt sts that she is having pain from her ankle down into her toes. Pt has some swelling in the ankle. * ROS: D ERMATOLOGY: no R geovanna. n o H clayton. G ASTROENTEROLOGY: no N ausea. n o V omiting. n o D iarrhea.? U ROLOGY: no D ifficulty urinating. n o B lood in urine. * Medical History: H /o positive ppd, Esophageal reflux, atypical CP, Cardiac intra-atrial septal aneurysm, hyperthyroid, 2015. * Surgical History: l aproscopic uterine tuck , Colonoscopy and EGD 08/2019. * Hospitalization/Major Diagno stic Procedure: H ER- Passed out 11/20/21. * Family History: F ather: alive, diagnosed with Heart Disease. M other: alive, hypertension, CHF. 1 sister(s) . . * Social History: C URRENT TOBACCO USE S moking Status: Patient does NOT smoke. C affeine: yes, frequency:. Exercise: yes. Home smoke detector use: yes. Marital Status: . Occupation: [employer]. Past smoking status: no. Recreational drug use: no. Alcohol: no. * Medications: T aking Omeprazole 40 MG Capsule Delayed Release 1 cap(s) orally once a day , Taking amLODIPine Besylate 5 MG Tablet Take 1 tablet by mouth once daily , Taking Synthroid 25 MCG Tablet 1 tab(s) orally once a day , Medication List reviewed and reconciled with the patient * Allergies: L isinopril: hives - Allergy, Clindamycin: rash. Objective: * Vitals: W t:193, Temp:97.9, BP:128/80, HR:105, Nurse:JANEY, Ht: 60, BMI:37.69. * Examination: A nkle / Foot: Ankle: right. I nspection: swelling on lateral side of ankle, no ecchymosis. P alpation: tender over lateral ligaments, no tenderness on malleoli, calcaneum or achillis. R phan of motion: normal inversion and eversion. G ait: favoring affected side. F oot: normal exam. Assessment: * Assessment: 1. I njury of right ankle, initial encounter - S99.297O (Primary) Plan: * Treatment: Notes: Will RICE the ankle and get an x-ray. ?? * Follow Up: v ia phone to report test results * Images: Billing Information: * Visit Code: 26323 Office Visit, Est Pt., Level 3. * Procedure Codes: * Electronic signature of RUDY Curiel on 10/04/2025 at 10:46 AM EST Sign off status: Pending * Provider: RUDY Chavez Date: 0 10/15/2024 Generated for Roselyn brower/Roly/Adysmitting on: 10:46 AM EST History and Physical Notes * HPI (History of Present Illness) Category Sub-Category Detail Notes Category Not es Ankle/Foot Pain Pt presents toda y with c/o pain in the right ankle. Pt sts that she fell through ice and felt her ankle twist. Pt sts that she is having pain from her ankle down into her toes. Pt has some swelling in the ankle Examination Category Sub-Category Detail Notes Category Not es Ankle / Foot Gait: favoring affected side Inspection: swelling on lateral side of ankle, no ecchymosis Palpation: tender over lateral ligaments, no tenderness on malleoli, calcaneum or achillis Ankle: right Range of motion: normal inversion and eversion Foot: normal exam
--- OUTSIDE RECORDS SUMMARY | 2024-10-29 11:45 | XMS_ITS ---
Author Organization Jose Address [address] [facility] [address] [place] [id number] Care Team Providers Care Eyeglass Lens Grinder Name Role Phone Yordan Minor Primary Care Provider [phone] Dayan Macias Unavailable [phone] Allergies Allergen (clinical drug ingredient) Drug/Non Drug Allergy documented on EMR Reaction Allergy Type Onset Date Status lisinopril Lisinopril hives Drug Allergy Activ e clindamycin Clindamycin rash Drug Allergy Act sanket Reason For Referral Diagnosis 1 Injury of right ankl e, subsequent encounter (T81.174E) Referral Organization [facility] Referring Provider First Name Dayan Referring Provider Last Name Gilberto Referring Provider Speciality Physician Windows Phone Developer Referred Provider PODIATRY, . Referred Provider Specialty Podiatry General Notes Dayan Macias 10/29 4:36:34 PM > Already has appt with Podiatry on Nov 05 at 1:00pm. Please send referral and imaging., Eri Valerio 10/30/2024 8:48:22 AM > all notes/image reports faxed Referral Priority Routine REASON FOR VISIT ankle swollen and painful Medications Medication SIG (Take, Route, Frequency, Duration) Notes Start Date End Date Status Omeprazole 40 MG 1 cap(s) orally once a day; Duration: 30 day(s) Active amLODIPine Besylate 5 MG Take 1 tablet b y mouth once daily; Duration: 30 Active Synthroid 25 MCG 1 tab(s) orally once a day; Duration: 90 days Active Vital Signs Blood pressure systolic 130 mm Hg 10/29/19 25 Blood pressure diastolic 88 mm Hg 025 Heart Rate 94 /min 10/29/2024 Height 60 in 10/29/2024 Weight 195.6 lbs 10/29/2024 BMI 38.20 kg/m2 10/29/2024 Encounters Encounter Location Date Provider Diagnosis [facility] [address] [place] [id number] 10/29/2024 Dayan Macias Injury of right ankl e, subsequent encounter S99.911D and Injury of right foot, initial encounter S99.921A Assessments Encounter Date Diagnosis (ICD Code) Assessment Notes Treatment Notes Treatment Clinical Notes Section Notes 10/29/2024 Injury of right ankle, subsequent encounter (ICD-10 - S99.911D) Patient states they told her in the ortho office they would make a referral to podiatry. I have spoken with podiatry and they did not receive a referral. They will see her on Nov 05 at 1:00pm. Will make referral and send imaging. She will also need intermittent FMLA paperwork filled out for the appts she has had with the specialists. 10/29/2024 Injury of right foot, initial encounter (ICD-10 - S99.921A) Plan Of Treatment Treatment Notes Assessment Notes Injury of right ankle, subse quent encounter Patient states they told her in the orth o office they would make a referral to podiatry. I have spoken with podiatry and they did not receive a referral. They will see her on Nov 05 at 1:00pm. Will make referral and send imaging. She will also need intermittent FMLA paperwork filled out for the appts she has had with the specialists. Referrals Referral Date Details 10/29/2024 10/29/2024, . PODIAT RY Next Appt Details Follow Up: with podiatry, Re ason: Progress Notes * LINDY REINOSO ANNDOB:1980 (44 yo F)Acc No.[id number]:10/29/2024 Progress Notes Patient: LINDY DUMONT ANN Provider: RUDY Chavez :1980 A ge:43 Y S ex:Female Date:10/29/2024 Address:[address] [place], [place] [address], [id number] Pcp:Yrodan Minor Subjective: * Chief Complaints: * 1 . Ankle swollen and painful. * HPI: A nkle/Foot: 43 year old female presents with c/o Pain P t sts the pain in her foot and ankle seems to be getting worse. She saw ortho and had x-rays. The x-rays showed no fracture. They felt she had a sprain and told her to wear an ankle brace. 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 This was causing a lot of pain and swelling. 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 She continues to have pain along the lateral side of the ankle and into the lateral side of the foot. MRI was denied because she has to try and fail PT. She is unable to wear a boot at work due to safety reasons..? c/o Swelling r ight ankle and foot, the swelling was bad yesterday and actually went up into her lower leg. * ROS: D ERMATOLOGY: no R geovanna. [...] detector use: yes. Marital Status: . Occupation: [employer]. Past smoking status: no. Recreational drug use: [...] Allergy, Clindamycin: rash. Objective: * Vitals: W t:195.6, Temp:97.9, BP:130/88, HR:94, Nurse:ITA, Ht: 60, BMI:38.20. * Examination: A nkle / Foot: Ankle: right. I nspection: swelling on lateral side of ankle, no ecchymosis. P alpation: tender over lateral ligaments, no tenderness on malleoli, calcaneum or achillis. R phan of motion: normal inversion and eversion. G ait: favoring affected side. F oot: s ome ttp along the lateral aspect of the foot. Assessment: * Assessment: 1. I njury of right ankle, subsequent encounter - S99.911D (Primary) 2 . I njury of right foot, initial encounter - S99.926T Plan: * Treatment: * Follow Up: [facility] podiatry * Images: Billing Information: * Visit Code: 35663 Office Visit, Est Pt., Level 3. * Procedure Codes: * Electronic signature of RUDY Curiel on 10/04/2025 at 10:47 AM EST Sign off status: Pending * Provider: RUDY Chavez Date: 0 10/29/2024 Generated for Roselyn brower/Roly/Rossanaitting on: 1 10:47 AM EST History and Physical Notes * HPI (History of Present Illness) Category Sub-Category Detail Notes Category Not es Ankle/Foot Pain Pt sts the pain in her foot and ankle seems to be getting worse. She saw ortho and had x-rays. The x-rays showed no fracture. They felt she had a sprain and told her to wear an ankle brace. 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 This was causing a lot of pain and swelling. 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 She continues to have pain along the lateral side of the ankle and into the lateral side of the foot. MRI was denied because she has to try and fail PT. She is unable to wear a boot at work due to safety reasons. Swelling right ankle and foot , the swelling was bad yesterday and actually went up into her lower leg Examination Category Sub-Category Detail Notes Category Not es Ankle / Foot Gait: favoring affected side Inspection: swelling on lateral side of ankle, no ecchymosis Palpation: tender over lateral ligaments, no tenderness on malleoli, calcaneum or achillis Ankle: right Range of motion: normal inversion and eversion Foot: some ttp along the l ateral aspect of the foot Consultation Request Notes Referral Date Referring Provider Referred Provider Not es 10/29/2024 Dayan Macias PODIATRY, .
--- OUTSIDE RECORDS SUMMARY | 2024-11-23 06:15 | XMS_ITS ---
Author Organization [facility] Address [address] [facility] [address] [id number] Care Team Providers Care Commercial Airplane Pilot Name Role Phone Yordan Minor Primary Care Provider Dayan Macias Unavailable [phone] Kannan Ba Unavailable [phone] Allergies Allergen (clinical drug ingredient) Drug/Non Drug Allergy documented on EMR Reaction Allergy Type Onset Date Status lisinopril Lisinopril hives Drug Allergy Activ e clindamycin Clindamycin rash Drug Allergy Act sanket Results Component Value Reference Range Notes Influenza Screen (in house) Reviewed date:11/23/2024 05:23:10 PM Interpretation: Performing Lab: Notes/Report: results Pos A Covid test (in house) Reviewed date:11/23/2024 05:23:18 PM Interpretation: Performing Lab: Notes/Report: Result: Neg REASON FOR VISIT headache, upset stomach & cough Medications Medication SIG (Take, Route, Frequency, Duration) Notes Start Date End Date Status Synthroid 25 MCG 1 tab(s) orally once a day; Duration: 90 days Active Omeprazole 40 MG 1 cap(s) orally once a day; Duration: 30 day(s) Active amLODIPine Besylate 5 MG Take 1 tablet b y mouth once daily; Duration: 30 Active Tamiflu 75 MG 1 capsule Orally Twi ce a day; Duration: 5 day(s) 11/23/2024 Active Promethazine-DM 6.25-15 MG/5ML 5 ml as needed Orally every 6 hrs 11/23/2024 Active Vital Signs Blood pressure systolic 130 mm Hg 11/23/19 25 Blood pressure diastolic 84 mm Hg 025 Heart Rate 123 /min 11/23/2024 Height 60 in 11/23/2024 Weight 185.4 lbs 11/23/2024 BMI 36.20 kg/m2 11/23/2024 Encounters Encounter Location Date Provider Diagnosis [facility] [address] [place] [id number] 11/23/2024 Kannan Ba Influenza A J 10.1 Assessments Encounter Date Diagnosis (ICD Code) Assessment Notes Treatment Notes Treatment Clinical Notes Section Notes 11/23/2024 Influenza A (ICD-10 - J10.1) Plan Of Treatment Medication Medication Name Sig Start Date Stop Date Notes Tamiflu 75 MG 1 capsule Orally Twi ce a day; Duration: 5 day(s) 11/23/2024 Promethazine-DM 6.25-15 MG/5ML 5 ml as n eeded Orally every 6 hrs 11/23/2024 Next Appt Details Follow Up: prn, Reason: Progress Notes * LINDY REINOSO ANNDOB:1980 (44 yo F)Acc No.[id number]:11/23/2024 Progress Notes Patient: LINDY DUMONT ANN Provider: Anh Ba M.D. :1980 A ge:44 Y S ex:Female Date:11/23/2024 Address:[address] [place], [place] [id number] Pcp:Yordan Minor Subjective: * Chief Complaints: * 1 . Headache, upset stomach & cough. * HPI: E NT/respiratory: 44 year old female presents with c/o cough P t complains of dry without any sputum production cough for 3 days. Associated with nasal congestion and chills.? * ROS: D ERMATOLOGY: no R geovanna. n o H clayton. G ASTROENTEROLOGY: no N ausea. n o V omiting. U ROLOGY: no D ifficulty urinating. n [...] detector use: yes. Marital Status: . Occupation: [employer]. Past smoking status: no. Recreational drug use: [...] Allergy, Clindamycin: rash. Objective: * Vitals: W t:185.4, Temp:98.2, BP:130/84, HR:123, O2 Sat:93% on RA, Nurse:piotr, Ht: 60, BMI:36.20. * Examination: E NT/Respiratory: General Appearance: N AD. E yes: P ERRLA, sclera clear. N buck : n o cervical lymphadenopathy. H eart : R RR, normal S1 S2. L ungs:?clear to auscultation bilaterally. Assessment: * Assessment: 1. I dariusz Herrera - J10.1 (Primary) Plan: * Treatment: Value Reference Range r esults Pos A Jenny Doty 11/23/2024 11:54:1 8 AM > , Provider reviewed results while patient in office. ?LAB: Covid test (in house) (Collection Date & Time - 11/23/2024)* Value Reference Range R esult: Neg Jenny Doty 11/23/2024 11:54:3 8 AM > , Provider reviewed results while patient in office. * Procedure Codes: 9 4760 [place], [address] Flu Test- Nasal Swab, Modifiers: QW , 61674 COVID TEST IN HOUSE, Modifiers: QW , 3075F SYST BP GE 130 - 139MM HG, 3079F DIAST BP 80-89 MM HG * Follow Up: p rn * Images: Billing Information: * Visit Code: 06250 Office Visit, Est Pt., Level 3. * Procedure Codes: [address] [place]. [address] Flu Test- Nasal Swab. Modifiers: QW 60598 COVID TEST IN HOUSE. Modifiers: QW 3075F SYST BP GE 130 - 139MM HG. 3079F DIAST BP 80-89 MM HG. * Electronic signature of Analilia Ba MD on 10/04/2025 at 10:46 AM EST Sign off status: Pending * Provider: Anh Ba M.D. Date: 0 11/23/2024 Generated for Roselyn brower/Roly/Rossanaitting on: 1 10:46 AM EST History and Physical Notes * HPI (History of Present Illness) Category Sub-Category Detail Notes Category Not es ENT/respiratory cough Pt complains of dry without any sputum production cough for 3 days. Associated with nasal congestion and chills Examination Category Sub-Category Detail Notes Category Not es ENT/Respiratory Neck : no cervical lymphadenopat hy Heart : RRR, normal S1 S2 Lungs: clear to auscultatio n bilaterally General Appearance: NAD Eyes: PERRLA, sclera clear
--- OUTSIDE RECORDS SUMMARY | 2024-12-23 11:45 | XMS_ITS ---
Author Organization Annetta Address [address] [facility] [address] [place] [id number] Care Team Providers Care Forensic Pathologist Name Role Phone Yordan Minor Primary Care Provider Dayan Macias Unavailable [phone] Allergies Allergen (clinical drug ingredient) Drug/Non Drug Allergy documented on EMR Reaction Allergy Type Onset Date Status lisinopril Lisinopril hives Drug Allergy Activ e clindamycin Clindamycin rash Drug Allergy Act sanket Results Component Value Reference Range Notes Urinalysis - Inhouse Reviewed date:12/23/2024 05:13:35 PM Interpretation: Performing Lab: Notes/Report: Color/Clarity yellow/clear Leuk Neg Nitrite Neg Urobili 3.2 Protein Neg pH 6.0 Blood Neg Sp. Gr. <=1.005 Ketone Neg Bili Neg Gluc Neg REASON FOR VISIT possible UTI Medications Medication SIG (Take, Route, Frequency, Duration) Notes Start Date End Date Status Omeprazole 40 MG 1 cap(s) orally once a day; Duration: 30 day(s) Active Synthroid 25 MCG 1 tab(s) orally once a day; Duration: 90 days Active amLODIPine Besylate 5 MG Take 1 tablet b y mouth once daily; Duration: 30 Active Vital Signs Blood pressure systolic 130 mm Hg 12/24/19 25 Blood pressure diastolic 80 mm Hg 025 Heart Rate 99 /min 12/23/2024 Height 60 in 12/23/2024 Weight 188.4 lbs 12/23/2024 BMI 36.79 kg/m2 12/23/2024 Encounters Encounter Location Date Provider Diagnosis [facility] [address] [place] [phone] 12/23/2024 Dayan Gilberto Urinary frequency R3 5.0 Assessments Encounter Date Diagnosis (ICD Code) Assessment Notes Treatment Notes Treatment Clinical Notes Section Notes 12/23/2024 Urinary frequency (ICD-10 - R35.0) U/A was normal. Will increase water intake, decrease caffeine, and begin kegal exercises. Plan Of Treatment Treatment Notes Assessment Notes Urinary frequency U/A was normal. Will increase water intake, decrease caffeine, and begin kegal exercises. Next Appt Details Follow Up: prn, Reason: Progress Notes * KEMAR LINDY ANNDOB:1980 (44 yo F)Acc No.[id number]:12/23/2024 Progress Notes Patient: LINDY DUMONT ANN Provider: RUDY Chavez :1980 A ge:44 Y S ex:Female Date:12/23/2024 Address:[facility] [place], [id number] Pcp:Yordan Minor Subjective: * Chief Complaints: * 1 . possible UTI. * HPI: U rology: 44 year old female presents with c/o frequent urination P t complains of frequent urination for about a month. Pt states she has not had any burning or pain with urination, sometimes leaks with coughing/sneezing. * ROS: D ERMATOLOGY: no R geovanna. [...] detector use: yes. Marital Status: . Occupation: [employer]. Past smoking status: no. Recreational drug use: no. Alcohol: no. * Medications: T aking Omeprazole 40 MG Capsule Delayed Release 1 cap(s) orally once a day , Taking amLODIPine Besylate 5 MG Tablet Take 1 tablet by mouth once daily , Taking Synthroid 25 MCG Tablet 1 tab(s) orally once a day , Discontinued Tamiflu 75 MG Capsule 1 capsule Orally Twice a day , Discontinued Promethazine-DM 6.25-15 MG/5ML Syrup 5 ml as needed Orally every 6 hrs , Medication List reviewed and reconciled with the patient * Allergies: L isinopril: hives - Allergy, Clindamycin: rash. Objective: * Vitals: W t:188.4, Temp:98.0, BP:130/80, HR:99, Nurse:piotr, Ht: 60, BMI:36.79. * Examination: G eneral Examination: General Appearance: N AD. C hest: n ormal shape and expansion. H eart: R SR. L ungs: c lear to auscultation. A bdomen: bowel sounds present, soft and nontender, no organomegaly or masses, no guarding or rigidity. B ack:? no CVA tenderness. Assessment: * Assessment: 1. U rinary frequency - R35.0 (Primary) Plan: * Treatment: Value Reference Range C olor/Clarity yellow/clear * L euk Neg * N itrite Neg * U robili 3.2 * P rotein Neg * p H 6.0 * B lood Neg * S p. Gr. <=1.005 * K etone Neg * B toribio Neg * G hilda Neg * Jenny 12/23/2024 4:31:56 PM > Notes: U/A was normal. Will increase water intake, decrease caffeine, and begin kegal exercises. ? * Procedure Codes: 8 1002 Urinalysis, no micro, 3075F SYST BP GE 130 - 139MM HG, 3079F DIAST BP 80-89 MM HG * Follow Up: p rn * Images: Billing Information: * Visit Code: 12686 Office Visit, Est Pt., Level 3. * Procedure Codes: 62337 Urinalysis, no micro. 3075F SYST BP GE 130 - 139MM HG. 3079F DIAST BP 80-89 MM HG. * Electronic signature of RUDY Curiel on 10/04/2025 at 10:47 AM EST Sign off status: Pending * Provider: RUDY Chavez Date: 0 12/23/2024 Generated for Roselyn brower/Roly/eTransmitting on: 1 10:47 AM EST History and Physical Notes * HPI (History of Present Illness) Category Sub-Category Detail Notes Category Not es Urology frequent urination Pt complains of frequent urination for about a month. Pt states she has not had any burning or pain with urination, sometimes leaks with coughing/sneezing Examination Category Sub-Category Detail Notes Category Not es General Examination Heart: RSR Lungs: clear to auscultatio n Abdomen: bowel sounds present , soft and nontender, no organomegaly or masses, no guarding or rigidity General Appearance: NAD Back: no CVA tenderness Chest: normal shape and exp ansion
--- OUTSIDE RECORDS SUMMARY | 2025-05-13 09:00 | XMS_ITS ---
[facility] Address [address] [place] [id number] Care Team Providers Care Treasury Assistant Name Role Phone Yordan Minor Primary Care Provider [phone] Dayan Macias Unavailable [phone] Allergies Allergen (clinical drug ingredient) Drug/Non Drug Allergy documented on EMR Reaction Allergy Type Onset Date Status lisinopril Lisinopril hives Drug Allergy Activ e clindamycin Clindamycin rash Drug Allergy Act sanket Results Component Value Reference Range Notes Influenza Screen (in house) Reviewed date:05/14/2025 09:03:17 AM Interpretation:neg Performing Lab: Notes/Report: neg results neg CBC Fingerstick (in house) Reviewed date:05/14/2025 09:03:17 AM Interpretation: Performing Lab: Notes/Report: wbc 7.4 3.5 - 10 lym 20.4 15 - 50 mid 5.6 2 - 15 gran 74.0 35 - 80 rbc 5.05 3.5 - 5.5 hgb 14.1 11.5 - 16.5 hct 43.0 35 - 55 mcv 85.2 75 - 100 mch 28.,0 25 - 35 mchc 32.9 31 - 38 plat 173 100 - 400 Covid test (in house) Reviewed date:05/14/2025 09:03:17 AM Interpretation:neg Performing Lab: Notes/Report: neg Result: neg REASON FOR VISIT Fever, Cough, Sinus Congestion Medications Medication SIG (Take, Route, Frequency, Duration) Notes Start Date End Date Status amLODIPine Besylate 5 MG Take 1 tablet b y mouth once daily; Duration: 30 Active Omeprazole 40 MG 1 capsule 1/2 to 1 h our before morning meal Orally Once a day; Duration: 30 days Active Levothyroxine Sodium 25 MCG Take 1 table t by mouth once daily; Duration: 90 Active Bromfed DM 30-2-10 MG/5ML 5-10 mL Orally 4 times a day, prn 05/13/2025 Active Vital Signs Blood pressure systolic 136 mm Hg 05/13/20 25 Blood pressure diastolic 84 mm Hg 025 Heart Rate 117 /min 05/13/2025 Height 60 in 05/13/2025 Weight 183.8 lbs 05/13/2025 BMI 35.89 kg/m2 05/13/2025 Encounters Encounter Location Date Provider Diagnosis [facility] [address] [place] [id number] 05/13/2025 Dayan Macias Acute URI J06.9 Assessments Encounter Date Diagnosis (ICD Code) Assessment Notes Treatment Notes Treatment Clinical Notes Section Notes 05/13/2025 Acute URI (ICD-10 - J06.9) fluids, rest, Plan Of Treatment Medication Medication Name Sig Start Date Stop Date Notes Bromfed DM 30-2-10 MG/5ML 5-10 mL Orally 4 times a day, prn 05/13/2025 Treatment Notes Assessment Notes Acute URI fluids, rest, Next Appt Details Follow Up: prn, Reason: Progress Notes * LINDY REINOSO ANNDOB:1980 (44 yo F)Acc No.[id number]:05/13/2025 Progress Notes Patient: LINDY DUMONT ANN Provider: RUDY Chavez :1980 A ge:44 Y S ex:Female Date:05/13/2025 Address:[address] [place], [place] [id number] Pcp:Yordan Minor Subjective: * Chief Complaints: * 1 . Fever, Cough, Sinus Congestion. * HPI: E NT/respiratory: Pt states these symptoms started Saturday. Pt states its just getting worse. 44 year old female presents with c/o cough. c/o Fever?with chills. c/o ear pain p ressure. c/o headache. c/o dizziness. c/o body aches. Denies : sore throat. D enies : Chest Pain. D enies : Short of Breath. * ROS: D ERMATOLOGY: no R geovanna. [...] no. Alcohol: no. * Medications: T aking amLODIPine Besylate 5 MG Tablet Take 1 tablet by mouth once daily , Taking Omeprazole 40 MG Capsule Delayed Release 1 capsule 1/2 to 1 hour before morning meal Orally Once a day , Taking Levothyroxine Sodium 25 MCG Tablet Take 1 tablet by mouth once daily , Medication List reviewed and reconciled with the patient * Allergies: L isinopril: hives - Allergy, Clindamycin: rash. Objective: * Vitals: W t: 183.8, Temp: 98.4, BP: 136/84, HR: 117, O2 Sat: 95% on ra, Nurse: pe, Ht: 60, BMI:35.89. * Examination: E NT/Respiratory: General Appearance: N AD. E ars: a uditory canals normal bilaterally, TM's WNL. N ose : t urbinates red, congested. S inuses : n on tender bilaterally. O ral cavity : e rythema without exudate on pharynx, PND present. N buck : n o cervical lymphadenopathy. H eart : R RR, normal S1 S2, no murmurs. L ungs:?clear to auscultation bilaterally. Assessment: * Assessment: 1. Sharon ramos URI - J06.9 (Primary) Plan: * Treatment: Value Reference Range r esults neg * Ivon Price 05/13/2025 02:37 :35 PM EDT > Provider reviewed results while patient in office. ?LAB: CBC Fingerstick (in house) (Collection Date & Time - 05/13/2025)* Value Reference Range w bc 7.4 3.5 - 10 * l ym 20.4 15 - 50 * m id 5.6 2 - 15 * g ran 74.0 35 - 80 * r bc 5.05 3.5 - 5.5 * h gb 14.1 11.5 - 16.5 * h ct 43.0 35 - 55 * m cv 85.2 75 - 100 * m ch 28.,0 25 - 35 * m chc 32.9 31 - 38 * p lat 173 100 - 400 * Ivon Price 05/13/2025 02:54 :26 PM EDT > Provider reviewed results while patient in office. ?LAB: Covid test (in house) (Collection Date & Time - 05/13/2025)?neg* Value Reference Range R esult: neg * Ivon Price 05/13/2025 02:37 :13 PM EDT > Provider reviewed results while patient in office. Notes: fluids, rest, ?? * Procedure Codes: 3 6416 CAPILLARY BLOOD DRAW, 17295 CBC WITH AUTO DIFF, [address]66[address] Flu Test- Nasal Swab, Modifiers: QW , 69151 COVID TEST IN HOUSE, Modifiers: QW , 1036F TOBACCO NON- USER, 3075F SYST BP GE 130 - 139MM HG, 3079F DIAST BP 80-89 MM HG * Follow Up: p rn * Images: Billing Information: * Visit Code: 26768 Office Visit, Est Pt., Level 3. * Procedure Codes: 44466 CAPILLARY BLOOD DRAW. 21289 CBC WITH AUTO DIFF. 01050 Flu Test- Nasal Swab. Modifiers: QW 85428 COVID TEST IN HOUSE. Modifiers: QW 1036F TOBACCO NON-USER. 3075F SYST BP GE 130 - 139MM HG. 3079F DIAST BP 80-89 MM HG. * Electronic signature of RUDY Curiel on 10/04/2025 at 10:47 AM EST Sign off status: Pending * Provider: RUDY Chavez Date: 0 05/13/2025 Generated for Roselyn brower/Roly/eTransmitting on: 1 10:47 AM EST History and Physical Notes * HPI (History of Present Illness) Category Sub-Category Detail Notes Category Not es ENT/respiratory sore throat ear pain pressure Short of Breath Chest Pain cough Fever with chills headache dizziness body aches Examination Category Sub-Category Detail Notes Category Not es ENT/Respiratory Oral cavity : erythema without exudate on pharynx, PND present Sinuses : non tender bilateral ly Ears: auditory canals norm al bilaterally, TM's WNL Neck : no cervical lymphade nopathy Heart : RRR, normal S1 S2, n o murmurs Lungs: clear to auscultatio n bilaterally General Appearance: NAD Nose : turbinates red, chon ested
--- OUTSIDE RECORDS SUMMARY | 2025-06-23 09:30 | XMS_ITS ---
Author Organization [facility] Address [address] [facility] [address] [place] [id number] Care Team Providers Care Principal Technical Specialist Name Role Phone Yordan Minor Primary Care Provider [phone] Dayan Macias Unavailable [phone] Kannan Ba Unavailable [phone] Allergies Allergen (clinical drug ingredient) Drug/Non Drug Allergy documented on EMR Reaction Allergy Type Onset Date Status lisinopril Lisinopril hives Drug Allergy Activ e clindamycin Clindamycin rash Drug Allergy Act sanket Results Component Value Reference Range Notes P-Comprehensive Metabolic Pa deb (CMP) Reviewed date:06/24/2025 10:19:51 AM Interpretation:Normal Performing Lab: Notes/Report: Test performed by [facility], [facility] [address] [place] [address] , [address], [place] [address] Deo Newton MD, Telephonic Nurse Case Manager CLIA: [id number] Sodium 140 135-145 mmol/L Potassium 4.1 3.5-5.3 mmol/L Chloride 104 97-108 mmol/L CO2 26 20-32 mmol/L Glucose 103 65-99 mg/dL BUN 12 6-20 mg/dL Creatinine 0.63 0.50-1.00 mg/dL Calcium 9.2 8.6-10.4 mg/dL eGFR by Creatinine 111 >59 mL/min/1.73m2 Protein 6.9 6.0-8.3 g/dL Albumin 4.2 3.5-5.3 g/dL Alkaline Phosphatase 77 35-121 IU/L ALT (SGPT) 22 <5-47 IU/L AST (SGOT) 18 <5-40 IU/L Bilirubin, Total 0.4 <0.2-1.2 mg/dL A/G Ratio 1.6 1.1-2.5 P-T4 Free (thyroxine) Reviewed date:06/24/2025 10:19:51 AM Interpretation:Normal Performing Lab: Notes/Report: Test performed by [facility], [address] , [place] [address] Deo Newton MD, Telephonic Nurse Case Manager CLIA: [id number] Thyroxine Free (free T4) 0.99 0.86-1.76 ng/dL P-Lipid Panel Reviewed date:06/24/2025 10:19:51 AM Interpretation:Chol 276, Trigs 223, Chol/HDL 5.02, Non-HDL 221, LDL 176 Performing Lab: Notes/Report: Test performed by [facility], [facility] [address] [place] [address] , [address], [place] [address] Deo Newton MD, Telephonic Nurse Case Manager CLIA: [id number] Cholesterol 276 <200 mg/dL Triglycerides 223 <150 mg/dL HDL Cholesterol 55 >39 mg/dL Cholesterol / HDL Ratio 5.02 0.00-4.44 Ratio Non-HDL Cholesterol 221 <130 mg/dL LDL Cholesterol (Calculation) 176 <130 mg/dL LDL Cholesterol Levels* Less than 100 mg/dL Optimal 100 to 129 mg/dL Near Optimal/ Above Optimal 130 to 159 mg/dL Borderline High 160 to 189 mg/dL High 190 mg/dL and above Very High * Categories as recommended by the 2004 ATPIII guidelines LDL/HDL Ratio 3.2 <3.3 Ratio LDL Cholesterol Patient History Test Date: 06/23/2025 LDL Results: 176 Units: mg/dL % Change: - P-Total T3 Reviewed date:06/24/2025 10:19:51 AM Interpretation:Normal Performing Lab: Notes/Report: Test performed by [facility] , [address], [place] [address] Deo Newton MD, Telephonic Nurse Case Manager CLIA: [id number] Total T3 1.34 0.80-2.00 ng/mL P-TSH Reviewed date:06/24/2025 10:19:51 AM Interpretation:Normal Performing Lab: Notes/Report: Test performed by [facility] [address] , [address], [place] [address] Deo Newton MD, Telephonic Nurse Case Manager CLIA: [id number] TSH 2.71 0.43-5.25 mU/L P-Microalbumin/Creatinine, R andom Urine Sample Reviewed date:06/24/2025 10:19:51 AM Interpretation:Normal Performing Lab: Notes/Report: Test performed by [facility] [address] , [address], [place] [address] Deo Newton MD, Telephonic Nurse Case Manager CLIA: [id number] Albumin/Creatinine Ratio, Urine 4 0-30 ug/m g Microalbumin, Urine, Random 0.3 Creatinine, Urine 71.3 P-Vitamin D 25-Hydroxy Reviewed date:06/24/2025 10:19:51 AM Interpretation:31.8 Performing Lab: Notes/Report: Test performed by [facility] [address] , [address], [place] [address] Deo Newton MD, Telephonic Nurse Case Manager CLIA: [id number] Vitamin D 25-Hydroxy 31.8 30.0-100.0 ng/mL Interpretation of Vitamin D 25 OH: < 20 ng/mL - Deficiency 20 - 29 ng/mL - Insufficiency 30 - 100 ng/mL - Sufficiency > 100 ng/mL - Super-therapeutic- toxicity may occur above this level. Clinical correlation required. REASON FOR VISIT high B/P Medications Medication SIG (Take, Route, Frequency, Duration) Notes Start Date End Date Status Bromfed DM 30-2-10 MG/5ML 5-10 mL Orally 4 times a day, prn 05/13/2025 Active Levothyroxine Sodium 25 MCG Take 1 table t by mouth once daily Active amLODIPine Besylate 5 MG Take 1 tablet b y mouth once daily Active Omeprazole 40 MG 1 capsule 1/2 to 1 h our before morning meal Orally Once a day; Duration: 30 days Active Vital Signs Blood pressure systolic 132 mm Hg 06/23/20 25 Blood pressure diastolic 80 mm Hg 025 Heart Rate 114 /min 06/23/2025 Height 60 in 06/23/2025 Weight 185.2 lbs 06/23/2025 BMI 36.17 kg/m2 06/23/2025 Encounters Encounter Location Date Provider Diagnosis [facility] [address], [place] [id number] 06/23/2025 Kannan Ba Essential hypertensi on I10 ; Mixed hyperlipidemia E78.2 ; Vitamin D deficiency E55.9 and Hypothyroidism E03.9 Assessments Encounter Date Diagnosis (ICD Code) Assessment Notes Treatment Notes Treatment Clinical Notes Section Notes 06/23/2025 Essential hypertension (ICD-10 - I10) Blood pressure journal 06/23/2025 Mixed hyperlipidemia (ICD-10 - E78.2) 06/23/2025 Vitamin D deficiency (ICD-10 - E55.9) 06/23/2025 Hypothyroidism (ICD-10 - E03.9) Plan Of Treatment Medication Medication Name Sig Start Date Stop Date Notes Levothyroxine Sodium 25 MCG Take 1 table t by mouth once daily amLODIPine Besylate 5 MG Take 1 tablet b y mouth once daily Treatment Notes Assessment Notes Essential hypertension Blood pressure marva urnal Next Appt Details Follow Up: via phone to repo rt test results, Reason: Progress Notes * LINDY REINOSO ANNDOB:1980 (44 yo F)Acc No.[id number]:06/23/2025 Progress Notes Patient: LINDY DUMONT ANN Provider: Anh Ba M.D. :1980 A ge:44 Y S ex:Female Date:06/23/2025 Address:[place], [id number] Pcp:Yordan Minor Subjective: * Chief Complaints: * 1 . high B/P. * HPI: C ardiology: 44 year old female presents with c/o Blood Pressure Elevated?Pt here for checkup on BP pt states at work this morning her BP was 150/80 @7am this morning and then rechecked it again at 830 and it was 154/84. Pt states she started to feel like it had went back down around lunch. Pt states when her BP was high she had shortness of breath. Pt states on 06/22 she felt some discomfort in her chest. Pt states it felt like a jolt . * Medical History: H /o positive ppd, Esophageal reflux, atypical CP, Cardiac intra-atrial septal aneurysm, Hypertension, Hypothyroidism, Autoimmune thyroiditis, Goiter. * Surgical History: l aproscopic uterine tuck , Colonoscopy and EGD 08/2019. * Hospitalization/Major Diagno stic Procedure: H ER- Passed out 11/20/2021. * Family History: F ather: alive, diagnosed with Heart Disease. M other: alive, hypertension, CHF. 1 sister(s) . . * Social History: C URRENT TOBACCO USE: No S moking Status: Patient does NOT smoke. [...] tablet by mouth once daily , Taking Bromfed DM 30-2-10 MG/5ML Syrup 5-10 mL Orally 4 times a day, prn , Medication List reviewed and reconciled with the patient * Allergies: L isinopril: hives - Allergy, Clindamycin: rash. Objective: * Vitals: W t: 185.2, Temp: 98.5, BP: 132/80, HR: 114, Nurse: BETHEL, Ht: 60, BMI:36.17. * Examination: E ndocrinology: General Appearance: N AD. H EENT: u nremarkable.?Heart: R SR. L ungs: c lear to auscultation. E xtremities: n o leg edema.?Skin: n ormal, no rash. N eurologic Exam: I ntact, gait normal. Assessment: * Assessment: 1. E ssential hypertension - I10 (Primary) 2 . M ixed hyperlipidemia - E78.2 3 . V itamin D deficiency - E55.9 4 . H ypothyroidism - E03.9 Plan: * Treatment: Value Reference Range A /G Ratio 1.6 1.1-2.5 - * A lbumin 4.2 3.5-5.3 - g/dL * A lkaline Phosphatase 77 35-121 - IU/L * A LT (SGPT) 22 <5-47 - IU/L * A ST (SGOT) 18 <5-40 - IU/L * B ilirubin, Total 0.4 <0.2-1.2 - mg/dL * B UN 12 6-20 - mg/dL * C alcium 9.2 8.6-10.4 - mg/dL * C hloride 104 97-108 - mmol/L * C O2 26 20-32 - mmol/L * C reatinine 0.63 0.50-1.00 - mg/dL * G lucose 103 H 65-99 - mg/dL * P otassium 4.1 3.5-5.3 - mmol/L * S odium 140 135-145 - mmol/L * P rotein 6.9 6.0-8.3 - g/dL * e GFR by Creatinine 111 >59 - mL/min/1.73m2 * Farnaz Burger 06/24/2025 10: 19:42 AM EDT > See phone encounter ?LAB: P-Microalbumin/Creatinine, Random Urine Sample (Collection Date & Time - 06/23/2025 02:34 PM)?Normal* Value Reference Range A lbumin/Creatinine Ratio, Urine 4 0-30 - ug /mg * C reatinine, Urine 71.3 - mg/dL * M icroalbumin, Urine, Random 0.3 - mg/dL * Farnaz Burger 06/24/2025 10: 19:42 AM EDT > See phone encounter Notes: Blood pressure journal??2.?Mixed hyperlipidemia?LAB: P-Comprehensive Metabolic Panel (CMP) (Collection Date & Time - 06/23/2025 02:34 PM)?Normal* Value Reference Range A /G Ratio 1.6 1.1-2.5 - * A lbumin 4.2 3.5-5.3 - g/dL * A lkaline Phosphatase 77 35-121 - IU/L * A LT (SGPT) 22 <5-47 - IU/L * A ST (SGOT) 18 <5-40 - IU/L * B ilirubin, Total 0.4 <0.2-1.2 - mg/dL * B UN 12 6-20 - mg/dL * C alcium 9.2 8.6-10.4 - mg/dL * C hloride 104 97-108 - mmol/L * C O2 26 20-32 - mmol/L * C reatinine 0.63 0.50-1.00 - mg/dL * G lucose 103 H 65-99 - mg/dL * P otassium 4.1 3.5-5.3 - mmol/L * S odium 140 135-145 - mmol/L * P rotein 6.9 6.0-8.3 - g/dL * e GFR by Creatinine 111 >59 - mL/min/1.73m2 * Farnaz Burger 06/24/2025 10: 19:42 AM EDT > See phone encounter ?LAB: P-Lipid Panel (Collection Date & Time - 06/23/2025 02:34 PM)?Chol 276, Trigs 223, Chol/HDL 5.02, Non-HDL 221, LDL 176* Value Reference Range C holesterol / HDL Ratio 5.02 H 0.00-4.44 - Ratio * C holesterol 276 H <200 - mg/dL * H DL Cholesterol 55 >39 - mg/dL * L DL Cholesterol (Calculation) 176 H <130 - mg/d L * L DL/HDL Ratio 3.2 <3.3 - Ratio * N on-HDL Cholesterol 221 H <130 - mg/dL * T riglycerides 223 H <150 - mg/dL * Farnaz Burger 06/24/2025 10: 19:42 AM EDT > See phone encounter 3.?Vitamin D deficiency?LAB: P-Vitamin D 25-Hydroxy (Collection Date & Time - 06/23/2025 02:34 PM)? 31.8* Value Reference Range V itamin D 25-Hydroxy 31.8 30.0-100.0 - ng/mL * Farnaz Burger 06/24/2025 10: 19:42 AM EDT > See phone encounter 4.?Hypothyroidism? Continue Levothyroxine Sodium Tablet, 25 MCG, Take 1 tablet by mouth once daily.?LAB: P-T4 Free (thyroxine) (Collection Date & Time - 06/23/2025 02:34 PM)? Normal* Value Reference Range T hyroxine Free (free T4) 0.99 0.86-1.76 - ng/d L * Farnaz Burger 06/24/2025 10: 19:42 AM EDT > See phone encounter ?LAB: P-Total T3 (Collection Date & Time - 06/23/2025 02:34 PM)?Normal* Value Reference Range T otal T3 1.34 0.80-2.00 - ng/mL * Farnaz Burger 06/24/2025 10: 19:42 AM EDT > See phone encounter ?LAB: P-TSH (Collection Date & Time - 06/23/2025 02:34 PM)?Normal* Value Reference Range T SH 2.71 0.43-5.25 - mU/L * Farnaz Burger 06/24/2025 10: 19:42 AM EDT > See phone encounter * Procedure Codes: 1 036F TOBACCO NON-USER, 3075F SYST BP GE 130 - 139MM HG, 3079F DIAST BP 80-89 MM HG * Follow Up: v ia phone to report test results * Images: Billing Information: * Visit Code: 62791 Office Visit, Est Pt., Level 4. * Procedure Codes: 1036F TOBACCO NON-USER. 3075F SYST BP GE 130 - 139MM HG. 3079F DIAST BP 80-89 MM HG. * Electronic signature of Analilia Ba MD on 10/04/2025 at 10:47 AM EST Sign off status: Pending * Provider: Anh Ba M.D. Date: 0 06/23/2025 Generated for Johani inocente/Roly/eTransmitting on: 1 10:47 AM EST History and Physical Notes * HPI (History of Present Illness) Category Sub-Category Detail Notes Category Not es Cardiology Blood Pressure Elevated Pt here for checkup on BP pt states at work this morning her BP was 150/80 @7am this morning and then rechecked it again at 830 and it was 154/84. Pt states she started to feel like it had went back down around lunch. Pt states when her BP was high she had shortness of breath. Pt states on 06/22 she felt some discomfort in her chest. Pt states it felt like a jolt Examination Category Sub-Category Detail Notes Category Not es Endocrinology HEENT: unremarkable Heart: RSR Lungs: clear to auscultatio n Extremities: no leg edema General Appearance: NAD Skin: normal, no rash Neurologic Exam: Intact, gait normal
--- OUTSIDE RECORDS SUMMARY | 2025-06-30 11:30 | XMS_ITS ---
Author Organization [facility] Address [address] [facility] [facility] [address] [place] [id number] Care Team Providers Care Assistant Professor Nurse Education Name Role Phone Yordan Minor Primary Care Provider [phone] Dayan Macias [phone] Allergies Allergen (clinical drug ingredient) Drug/Non Drug Allergy documented on EMR Reaction Allergy Type Onset Date Status lisinopril Lisinopril hives Drug Allergy Activ e clindamycin Clindamycin rash Drug Allergy Act sanket REASON FOR VISIT f/u on heart rate Medications Medication SIG (Take, Route, Frequency, Duration) Notes Start Date End Date Status Bromfed DM 30-2-10 MG/5ML 5-10 mL Orally 4 times a day, prn 05/13/2025 Not-Taking Levothyroxine Sodium 25 MCG Take 1 tablet by mouth once daily Active amLODIPine Besylate 5 MG Take 1 tablet b y mouth once daily Active Metoprolol Succinate ER 50 MG 1 tablet Orally Once a day; Duration: 30 days 06/25/2025 Active Omeprazole 40 MG 1 capsule 1/2 to 1 hour before morning meal Orally Once a day; Duration: 30 days Active Vital Signs Blood pressure systolic 128 mm Hg 06/30/20 25 Blood pressure diastolic 76 mm Hg 025 Heart Rate 85 /min 06/30/2025 Height 60 in 06/30/2025 Weight 188.2 lbs 06/30/2025 BMI 36.75 kg/m2 06/30/2025 Encounters Encounter Location Date Provider Diagnosis [place] [address] [facility] [address] [place] [id number] 06/30/2025 Dayan Macias Essential hypertensi on I10 Assessments Encounter Date Diagnosis (ICD Code) Assessment Notes Treatment Notes Treatment Clinical Notes Section Notes 06/30/2025 Essential hypertension (ICD-10 - I10) Will continue to monitor BP and will start taking toprol at night. Plan Of Treatment Medication Medication Name Sig Start Date Stop Date Notes amLODIPine Besylate 5 MG Take 1 tablet by mouth once daily Treatment Notes Assessment Notes Essential hypertension Will continue to monitor BP and will start taking toprol at night. Next Appt Details Follow Up: 1 month, Reason: Progress Notes * LINDY REINOSO ANNDOB:1980 (44 yo F)Acc No.[id number]:06/30/2025 Progress Notes Patient: LINDY DUMONT ANN Provider: RUDY Chavez :1980 A ge:44 Y S ex:Female Date:06/30/2025 Address:[address] [place], [place] [id number] Pcp:Yordan Minor Subjective: * Chief Complaints: * 1 . F/u on heart rate. * HPI: C ardiology: Blood Pressure Elevated P t is here for follow up on BP and heart rate. Pt states she is doing well since starting Metoprolol. Pt would like to discuss switching taking medicine from morning to night. Pt states she has noticed she gets a little dizzy/light headed . * ROS: D ERMATOLOGY: no R geovanna. [...] tablet by mouth once daily , Taking Levothyroxine Sodium 25 MCG Tablet Take 1 tablet by mouth once daily , Taking Omeprazole 40 MG Capsule Delayed Release 1 capsule 1/2 to 1 hour before morning meal Orally Once a day , Taking Metoprolol Succinate ER 50 MG Tablet Extended Release 24 Hour 1 tablet Orally Once a day , Not-Taking Bromfed DM 30-2-10 MG/5ML Syrup 5- 10 mL Orally 4 times a day, prn , Medication List reviewed and reconciled with the patient * Allergies: L isinopril: hives - Allergy, Clindamycin: rash. Objective: * Vitals: W t: 188.2, Temp: 98.3, BP: 128/76, HR: 85, Nurse: SF, Ht: 60, BMI:36.75. * Examination: G eneral Examination: General Appearance: N AD. H EENT: u nremarkable.?Oral cavity: n o lesions, mucosa moist and WNL, no erythema. N buck: s upple, no lymphadenopathy. C hest: n ormal shape and expansion. H eart: R SR. L ungs: c lear to auscultation. A bdomen: b owel sounds present, soft and nontender. N eurologic Exam: I ntact, gait normal. S kin: n ormal, no rash. P eripheral pulses: n ormal (2+) bilaterally. E xtremities: n o leg edema. Assessment: * Assessment: 1. E ssential hypertension - I10 (Primary) Plan: * Treatment: * Procedure Codes: G 9899 Scrn chip perf rslts doc, 3017F COLORECTAL CA SCREEN DOC REV, 1036F TOBACCO NON-USER, 3074F SYST BP LT 130 MM HG, 3078F DIAST BP < 80 MM HG * Preventive Medicine: Screening / Special Tests: M ammogram 1 10.28.2023 normal. C olonoscopy 1 . * Follow Up: 1 month * Images: Billing Information: * Visit Code: 03690 Office Visit, Est Pt., Level 4. * Procedure Codes: G9899 Scrn chip perf rslts doc. 3017F COLORECTAL CA SCREEN DOC REV. 1036F TOBACCO NON-USER. 3074F SYST BP LT 130 MM HG. 3078F DIAST BP < 80 MM HG. * Electronic signature of RUDY Curiel on 10/04/2025 at 10:47 AM EST Sign off status: Pending * Provider: RUDY Chavze Date: 0 06/30/2025 Generated for Roselyn brower/Roly/eTransmitting on: 1 10:47 AM EST History and Physical Notes * HPI (History of Present Illness) Category Sub-Category Detail Notes Category Not es Cardiology Blood Pressure Elevated Pt is he re for follow up on BP and heart rate. Pt states she is doing well since starting Metoprolol. Pt would like to discuss switching taking medicine from morning to night. Pt states she has noticed she gets a little dizzy/light headed Examination Category Sub-Category Detail Notes Category Not es General Examination HEENT: unremarkable Heart: RSR Lungs: clear to auscultatio n Abdomen: bowel sounds present , soft and nontender Extremities: no leg edema General Appearance: NAD Skin: normal, no rash Neurologic Exam: Intact, gait normal Neck: supple, no lymphaden opathy Oral cavity: no lesions, mucosa m oist and WNL, no erythema Peripheral pulses: normal (2+) bilatera lly Chest: normal shape and exp ansion
--- OUTSIDE RECORDS SUMMARY | 2025-08-06 05:00 | XMS_ITS ---
Author Organization [facility] Address [address] [facility] [address] [place] [phone] Care Team Providers Care [employer] Name Role Phone Yordan Minor Primary Care Provider Dayan Macias [phone] Allergies Allergen (clinical drug ingredient) Drug/Non Drug Allergy documented on EMR Reaction Allergy Type Onset Date Status lisinopril Lisinopril hives Drug Allergy Activ e clindamycin Clindamycin rash Drug Allergy Act sanket REASON FOR VISIT health savings card for work Medications Medication SIG (Take, Route, Frequency, Duration) Notes Start Date End Date Status Bromfed DM 30-2-10 MG/5ML 5-10 mL Orally 4 times a day, prn 05/13/2025 Not-Taking amLODIPine Besylate 5 MG Take 1 tablet b y mouth once daily Active Vitamin D3 125 MCG (5000 UT) 1 tablet Orally Once a day; Duration: 30 days 08/06/2025 Active Omeprazole 40 MG 1 capsule 1/2 to 1 hour before morning meal Orally Once a day; Duration: 30 days Active Nebivolol HCl 5 MG 1 tablet Orally Once a day; Duration: 30 days 08/06/2025 Active Levothyroxine Sodium 25 MCG Take 1 tablet by mouth once daily Active Vital Signs Blood pressure systolic 120 mm Hg 08/06/20 25 Blood pressure diastolic 72 mm Hg 025 Heart Rate 73 /min 08/06/2025 Height 60 in 08/06/2025 Weight 186.6 lbs 08/06/2025 BMI 36.44 kg/m2 08/06/2025 Encounters Encounter Location Date Provider Diagnosis [facility] [address] [place] [id number] 08/06/2025 Dayan Macias Annual physical exam Z00.00 ; Essential hypertension I10 ; Mixed hyperlipidemia E78.2 ; Vitamin D deficiency E55.9 and Hypothyroidism E03.9 Assessments Encounter Date Diagnosis (ICD Code) Assessment Notes Treatment Notes Treatment Clinical Notes Section Notes 08/06/2025 Annual physical exam (ICD-10 - Z00.00) 08/06/2025 Essential hypertension (ICD-10 - I10) Patient states the maddy makes her very fatigued. She would like to stop it or try something different. 08/06/2025 Mixed hyperlipidemia (ICD-10 - E78.2) 08/06/2025 Vitamin D deficiency (ICD-10 - E55.9) 08/06/2025 Hypothyroidism (ICD-10 - E03.9) Plan Of Treatment Medication Medication Name Sig Start Date Stop Date Notes amLODIPine Besylate 5 MG Take 1 tablet b y mouth once daily Vitamin D3 125 MCG (5000 UT) 1 tablet Or ally Once a day; Duration: 30 days 08/06/2025 Metoprolol Succinate ER 50 MG Take 1 tab let by mouth once daily Nebivolol HCl 5 MG 1 tablet Orally Once a day; Duration: 30 days 08/06/2025 Treatment Notes Assessment Notes Essential hypertension Patient states th jadyn castañeda makes her very fatigued. She would like to stop it or try something different. Next Appt Details Follow Up: via phone to repo rt progress, Reason: Progress Notes * LINDY REINOSO ANNDOB:1980 (44 yo F)Acc No.[id number]:08/06/2025 Physical Patient: Phillip NENO PEDRO Provider: RUDY Chavez :1980 A ge:44 Y S ex:Female Date:08/06/2025 Address:[id number] Pcp:Yordan Minor Subjective: * Chief Complaints: * 1 . Health savings card for work. * HPI: H PI: 44 year old female presents with c/o Patient is here today for?Pt is here today to discuss a health savings card/physical for her place of employment. * ROS: D ERMATOLOGY: no R geovanna. [...] no. Alcohol: no. * Medications: T aking Levothyroxine Sodium 25 MCG Tablet Take 1 tablet by mouth once daily , Taking Omeprazole 40 MG Capsule Delayed Release 1 capsule 1/2 to 1 hour before morning meal Orally Once a day , Taking amLODIPine Besylate 5 MG Tablet Take 1 tablet by mouth once daily , Taking Metoprolol Succinate ER 50 MG Tablet Extended Release 24 Hour Take 1 tablet by mouth once daily , Not-Taking Bromfed DM 30-2-10 MG/5ML Syrup 5-10 mL Orally 4 times a day, prn , Medication List reviewed and reconciled with the patient * Allergies: L isinopril: hives - Allergy, Clindamycin: rash. Objective: * Vitals: W t: 186.6, Temp: 98.5, BP: 120/72, HR: 73, Nurse: , Ht: 60, BMI:36.44. * Examination: G eneral Examination: General Appearance: [...] o leg edema. Assessment: * Assessment: 1. A nnual physical exam - Z00.00 (Primary) 2 . E ssential hypertension - I10 3 . M ixed hyperlipidemia - E78.2 4 . V itamin D deficiency - E55.9 5 . H ypothyroidism - E03.9 Plan: * Treatment: 2. V itamin D deficiency Start Vitamin D3 Tablet, 125 MCG (5000 UT), 1 tablet, Orally, Once a day, 30 days, 30 Tablet, Refills 1. * Procedure Codes: 1 036F TOBACCO NON-USER, 3074F SYST BP LT 130 MM HG, 3078F DIAST BP < 80 MM HG, 3017F COLORECTAL CA SCREEN DOC REV, G9899 Scrn chip perf rslts doc * Preventive Medicine: Screening / Special Tests: M ammogram 1 10/28/2023. C olonoscopy 1 . * Follow Up: v ia phone to report progress * Images: Billing Information: * Visit Code: 78583 Preventive Care Est Pt Age 40-64. Modifiers: [id number] Office Visit, Est Pt., Level 3. * Procedure Codes: 1036F TOBACCO NON-USER. 3074F SYST BP LT 130 MM HG. 3078F DIAST BP < 80 MM HG. 3017F COLORECTAL CA SCREEN DOC REV. G9899 Scrn chip perf rslts doc. * Electronic signature of RUDY Curiel on 10/04/2025 at 10:46 AM EST Sign off status: Pending * Provider: RUDY Chavez Date: Generated for Roselyn brower/Roly/eTransmitting on: 10:46 AM EST History and Physical Notes * HPI (History of Present Illness) Category Sub-Category Detail Notes Category Not es HPI Patient is here today for Pt is here today to discuss a health savings card/physical for her place of employment Examination Category Sub-Category Detail Notes Category Not [...]
--- NOTE | 2025-10-04 10:37 | MM_ITS ---
PROCEDURE INFORMATION: Exam: MG Bilateral Screening 3D Mammography Exam date and time: 10/04/2025 10:51 AM Age: 44 years old Clinical indication: Screening examination TECHNIQUE: Imaging protocol: Bilateral Screening tomosynthesis and 2D mammography including computer-aided detection (CAD) when performed. COMPARISON: 1. MG MM DIG SCREENING MAMM BI W/CAD 08/28/2024 9:42 AM 2. MG MM DIG SCREENING MAMM BI W/CAD 08/23/2023 2:38 PM FINDINGS: MAMMOGRAPHY: Breast composition: There are scattered areas of fibroglandular density. Mass: None. Architectural distortion: None. Calcifications: No suspicious calcifications. Asymmetric density: None. Skin thickening: None. Axillary adenopathy: None. IMPRESSION: No mammographic evidence of malignancy. Annual screening is recommended unless otherwise clinically indicated. ASSESSMENT: BI-RADS Category 1: Negative.
--- OUTSIDE RECORDS SUMMARY | 2025-10-04 10:46 | XMS_ITS | Clinical Summary ---
[facility] Address [address] [place] [address] Care Team Providers Care Dry Cleaning Machine Operator Name Role Phone Provider, No Known Primary Care Provider Unavail able Allergies No known active allergies Medications Esomeprazole Magnesium (NEXIUM PO) Take 1 tablet by mouth Daily. Active Euthyrox 25 MCG tabletIndication s:Hypothyroidism , unspecified type Take 1 tablet by mouth once daily 90 tablet 12/14/2021 Active Active Problems No known active problems Family History Medical History Relation Name Comments Thyroid disease Father Heart disease Mother Thyroid disease Sister Relation Name Status Comments Father Alive Mother Alive Sister Alive Social History Tobacco Use Types Packs/Day Years Used Date Smoking Tobacco: Never Smokeless Tobacco: Never Alcohol Use Standard Drinks/Week Comments Not Currently 0 (1 standard drink = 0.6 oz pur e alcohol) Abuse Screen Answer Date Recorded Unsafe at Home or Work/School Not on file Feels Threatened by Someone? Not on file 06/2023 Does Anyone Keep You from Co ntacting Others or Doint Things Outside the Home? Not on file 07/15/2023 Physical Sign of Abuse Present Not on file 1 Housing Stability Answer Date Recorded Current Living Arrangements Not on file 06/2023 Potentially Unsafe Housing Conditions Not on allen e 07/15/2023 Family and Community Support Answer Delmar e Recorded Help with Day-to-Day Activities Not on file 07/15/2023 Lonely or Isolated Not on file 07/15/2023 Employment Answer Date Recorded Do you want help finding or keeping work or a marva b? Not on file 07/15/2023 Disabilities Answer Date Recorded Concentrating, Remembering, or Making Decisions Difficulty Not on file 07/15/2023 Doing Errands Independently Difficulty Not on fi le 07/15/2023 Education Answer Date Recorded Help with school or training? Not on file Preferred Language Not on file 07/15/2023 Comments Unknown Sex and Gender Information Value Date Recorded Sex Assigned at Not on file Legal Sex Female 1:11 PM EDT Gender Identity Not on file Sexual Orientation Not on file Last Filed Vital Signs Vital Sign Reading Time Taken Comments Blood Pressure 122/64 09/06/2020 9:24 AM EST Pulse 82 09/06/2020 9:24 AM EST Temperature - - Respiratory Rate - - Oxygen Saturation 98% 09/06/2020 9:24 AM EST Inhaled Oxygen Concentration - - Weight 74.3 kg (163 lb 12.8 oz) 09/06/2020 9:24 AM EST Height 149.9 cm (4' 11 ) 09/06/2020 9:24 AM EST Body Mass Index 33.08 09/06/2020 9:24 AM EST Plan of Treatment Health Maintenance Due Date Last Done Comments Annual Gynecologic Pelvic an d Breast Exam 1979 TDAP/TD VACCINES (1 - Tdap) 1998 MAMMOGRAM 2019 ANNUAL PHYSICAL 09/06/2020 HEPATITIS C SCREENING 09/06/2020 COLOGUARD 2024 COLON CANCER SCREENING 5 YEA R SIGMOIDOSCOPY 2024 COLONOSCOPY 2024 COLORECTAL CANCER SCREENING 2024 CT COLONOGRAPHY 2024 FECAL OCCULT BLOOD TEST 2024 FIT Testing (1 year) 2024 INFLUENZA VACCINE 05/07/2025 Pneumococcal Vaccine 0-49 Aged Out No longer eligible based on patient's age to complete this topic Insurance [facility] PPO Care Teams Dry Cleaning Machine Operator Relationship Specialty Start Date End Date Provider, [place] [address] PCP - General 09/06/20
--- OUTSIDE RECORDS SUMMARY | 2025-10-04 10:46 | XMS_ITS | Encounter Summary ---
[facility] Address [address] [place] [address] Care Team Providers Care Wood Last Maker Name Role Phone Provider, No Known Primary Care Provider Unavail able Reason for Visit * Reason Comments Med Refill Encounter Details Date Type Department Care Team (Late st Contact Info) Description 10/18/2022 Refill [facility] ENDOCR[facility]OLOG[facility] [address] [id number] Zenon Castaneda MD [address] [address] Hypothyroidism, unspecified type Social History Tobacco Use Types Packs/Day Years Used Date Smoking Tobacco: Never Smokeless Tobacco: Never Alcohol Use Standard Drinks/Week Comments Not Currently 0 (1 standard drink = 0.6 oz pur e alcohol) Comments Unknown Sex and Gender Information Value Date Recorded Sex Assigned at Not on file Legal Sex Female 1:11 PM EDT Gender Identity Not on file Sexual Orientation Not on file documented as of this encounter Plan of Treatment Not on file documented as of this encounter Visit Diagnoses Diagnosis Hypothyroidism, unspecified type documented in this encounter Care Teams Wood Last Maker Relationship Specialty Start Date End Date Provider, [place] [address] PCP - General 09/06/20 documented as of this encounter
--- OUTSIDE RECORDS SUMMARY | 2025-10-04 10:47 | XMS_ITS | Patient Health Record ---
Author Organization [facility] Address [address] [place] [id number] Care Team Providers Care Demand Planning Analyst Name Role Phone Yordan Minor Primary Care Provider [phone] Dayan Macias Unavailable [phone] Kannan Ba Unavailable [phone] Allergies Allergen (clinical drug ingredient) Drug/Non Drug Allergy documented on EMR Reaction Allergy Type Onset Date Status lisinopril Lisinopril hives Drug Allergy Activ e clindamycin Clindamycin rash Drug Allergy Act sanket Results Component Value Reference Range Notes X ray : Ankle, right Reviewed date:10/16/2024 11:07:12 AM Interpretation:Negative Performing Lab: Notes/Report: Negative Urinalysis - Inhouse Reviewed date:12/23/2024 05:13:35 PM Interpretation: Performing Lab: Notes/Report: Color/Clarity yellow/clear Leuk Neg Nitrite Neg Urobili 3.2 Protein Neg pH 6.0 Blood Neg Sp. Gr. <=1.005 Ketone Neg Bili Neg Gluc Neg Influenza Screen (in house) Reviewed date:05/14/2025 09:03:17 [...] Interpretation:neg Performing Lab: Notes/Report: neg Result: neg P-Vitamin D 25-Hydroxy Reviewed date:06/24/2025 10:19:51 AM Interpretation:31.8 Performing Lab: Notes/Report: Test performed by [facility] [address] , [address], [place] [address] Deo Newton MD, Family Preservation Caseworker CLIA: [id number] Vitamin D 25-Hydroxy 31.8 30.0-100.0 ng/mL Interpretation of Vitamin D 25 OH: < 20 ng/mL - Deficiency 20 - 29 ng/mL - Insufficiency 30 - 100 ng/mL - Sufficiency > 100 ng/mL - Super-therapeutic- toxicity may occur above this level. Clinical correlation required. P-Microalbumin/Creatinine, R andom Urine Sample Reviewed date:06/24/2025 10:19:51 AM Interpretation:Normal Performing Lab: Notes/Report: Test performed by [facility] [address] , [address], [place] [address] Deo Newton MD, Family Preservation Caseworker CLIA: [id number] Albumin/Creatinine Ratio, Urine 4 0-30 ug/mg Microalbumin, Urine, Random 0.3 Creatinine, Urine 71.3 P-TSH Reviewed date:06/24/2025 10:19:51 AM Interpretation:Normal Performing Lab: Notes/Report: Test performed by [facility] [address] [place] [address] , [address], [place] [address] Deo Newton MD, Family Preservation Caseworker CLIA: [id number] TSH 2.71 0.43-5.25 mU/L P-Total T3 Reviewed date:06/24/2025 10:19:51 AM Interpretation:Normal Performing Lab: Notes/Report: Test performed by [facility] [address] , [address], [place] [address] Deo Newton MD, Family Preservation Caseworker CLIA: [id number] Total T3 1.34 0.80-2.00 ng/mL P-Lipid Panel Reviewed date:06/24/2025 10:19:51 AM Interpretation:Chol 276, Trigs 223, Chol/HDL 5.02, Non-HDL 221, LDL 176 Performing Lab: Notes/Report: Test performed by [email or web address], [address] , [address], [place] [address] Deo Newton MD, Family Preservation Caseworker CLIA: [id number] Cholesterol 276 <200 mg/dL Triglycerides 223 <150 [...] Results: 176 Units: mg/dL % Change: - P-T4 Free (thyroxine) Reviewed date:06/24/2025 10:19:51 AM Interpretation:Normal Performing Lab: Notes/Report: Test performed by [facility] [address] [place] [address] , [address], [place] [address] Deo Newton MD, Family Preservation Caseworker CLIA: [id number] Thyroxine Free (free T4) 0.99 0.86-1.76 ng/dL P-Comprehensive Metabolic Pa deb (CMP) Reviewed date:06/24/2025 10:19:51 AM Interpretation:Normal Performing Lab: Notes/Report: Test performed by [facility] [address] , [address], [place] [address] Deo Newton MD, Family Preservation Caseworker CLIA: [id number] Sodium 140 135-145 mmol/L Potassium 4.1 3.5-5.3 [...] 0.4 <0.2-1.2 mg/dL A/G Ratio 1.6 1.1-2.5 MRI : Foot, right, without c ontrast Reviewed date:03/05/2025 09:06:14 AM Interpretation:not performed- insurance denied Performing Lab: Notes/Report: not performed- insurance denied MRI : Ankle, right, without contrast Reviewed date:02/05/2025 10:29:23 AM Interpretation:Normal Performing Lab: Notes/Report: Normal Influenza Screen (in house) Reviewed date:11/23/2024 05:23:10 PM Interpretation: Performing Lab: Notes/Report: results Pos A Covid test (in house) Reviewed date:11/23/2024 05:23:18 PM Interpretation: Performing Lab: Notes/Report: Result: Neg Medications Medication SIG (Take, Route, Frequency, Duration) Notes Start Date End Date Status Bromfed DM 30-2-10 MG/5ML 5-10 mL Orally 4 times a day, prn 05/13/2025 Not-Taking Omeprazole 40 MG 1 capsule 1/2 to 1 hour before morning meal Orally Once a day; Duration: 90 days Active Nebivolol HCl 5 MG 1 tablet Orally Once a day; Duration: 30 days 08/06/2025 Active amLODIPine Besylate 5 MG Take 1 tablet b y mouth once daily Active Vitamin D3 125 MCG (5000 UT) 1 tablet Orally Once a day; Duration: 30 days 08/06/2025 Active Levothyroxine Sodium 25 MCG Take 1 tablet by mouth once daily; Duration: 90 Active Problems Problem Type SNOMED Code ICD Code Onset Dates Problem Status W/U Status Risk Notes Problem Gastroesophageal reflux disease (disorder) (762402953) GERD [Gastroesophageal reflux disease] (530.81) Active confirmed Problem Hypothyroidism (18648284) Hypothyroidism NOS (244.9) Active confirmed Problem Essential hypertension (79811354) Essential (primary) hypertension (I10) Active confirmed Problem Vitamin D deficiency (34803285) Vitamin D deficiency (E55.9) Active confirmed Problem Essential hypertension (13126412) Essential hypertension (I10) Active confirmed Problem Hyperthyroidism (44939636) Hyperthyroidism (E05.90) Active confirmed Problem Paresthesia (32138400) Paresthesia (R20.2) Active confirmed Problem Mixed hyperlipidemia (860897700) Mixed hyperlipidemia (E78.2) Active confirmed Problem Hypothyroidism (57997374) Hypothyroidism (E03.9) Active confirmed Problem Leucocytosis (760023351) Leucocytosis (D72.829) Active confirmed Problem Right bundle branch block (50656791) Incomplete RBBB (I45.10) Active confirmed Problem Gastroesophageal reflux disease (247746044) Gastroesophageal reflux disease, unspecified whether esophagitis present (K21.9) Active confirmed Problem Primary hypertension (39097316) Primary hypertension (I10) Active confirmed Vital Signs Heart Rate 73 /min 08/06/2025 Blood pressure diastolic 72 mm Hg 08/06/2025 Height 60 in 08/06/2025 Blood pressure systolic 120 mm Hg 08/06/2025 Weight 186.6 lbs 08/06/2025 BMI 36.44 kg/m2 08/06/2025 Encounters Encounter Location Date Provider Diagnosis [facility] [address] [place], [place] [id number] 10/15/2024 Dayan Crowdy Injury of right ankl e, initial encounter S99.911A [facility] [address] [place], [place] [id number] 10/29/2024 Dayan Crowdy Injury of right ankl e, subsequent encounter S99.911D and Injury of right foot, initial encounter S99.921A [facility] [address] [facility] [address] [place], [place] [id number] 11/23/2024 Kannan Foxworth Influenza A J10.1 [facility] [address] [facility] [address] [place] [id number] 12/23/2024 Dayan Ignaciody Urinary frequency R3 5.0 [facility] [address] [facility] [address] [place], [place] [id number] 05/13/2025 Dayan Ignaciody Acute URI J06.9 [facility] [address] [facility] [address] [place], [place] [id number] 06/23/2025 Kannan Foxworth Essential hypertensi on I10 ; Mixed hyperlipidemia E78.2 ; Vitamin D deficiency E55.9 and Hypothyroidism E03.9 [facility] [address] [facility] [address] [place] [id number] 06/30/2025 Dayan Crowdy Essential hypertensi on I10 [facility] [address] [facility] [address] [place], [place] [id number] 08/06/2025 Dayan Gilberto Annual physical exam Z00.00 ; Essential hypertension I10 ; Mixed hyperlipidemia E78.2 ; Vitamin D deficiency E55.9 and Hypothyroidism E03.9 [facility] [address] [facility] [address] [place], [place] [id number] 08/30/2025 Yordan Jay Minor [facility] [address] [facility] [address] [place], [place] [id number] 10/22/2024 Dayan Crowdy Injury of right ankl e, subsequent encounter S99.911D and Injury of right foot, initial encounter S99.921A [facility] [address] [place], [place] [id number] 10/23/2024 R Jay Garciaeet [facility] [address] [place], [place] [id number] 10/29/2024 R Jay Mily [facility] [address] [place], [place] [id number] 02/01/2025 R Jay Mily [facility] [address] [place] [id number] 06/01/2025 R Jay Mily [facility] [address] [place] [id number] 06/24/2025 Kannan Foxworth [facility] [address] [place], [place] [id number] 06/25/2025 R Jay Mily [facility] [address] [place] [id number] 07/06/2025 R Jay Mily Breast cancer screen ing Z12.31 and Mammographic fibroglandular density, bilateral breasts R92.323 [facility] [address] [place], [place] [id number] 09/13/2025 R Jay Garciaeet [facility] [address] [place], [place] [id number] 06/26/2025 Dayan Macias Assessments Encounter Date Diagnosis (ICD Code) Assessment Notes Treatment Notes Treatment Clinical Notes Section Notes 10/15/2024 Injury of right ankle, initial encounter (ICD-10 - S99.911A) Will RICE the ankle and get an x-ray. 10/22/2024 Injury of right ankle, subsequent encounter (ICD-10 - S99.911D) 10/29/2024 Injury of right foot, initial encounter (ICD-10 - S99.921A) 10/29/2024 Injury of right ankle, subsequent encounter [...] appts she has had with the specialists. 11/23/2024 Influenza A (ICD-10 - J10.1) 12/23/2024 Urinary frequency (ICD-10 - R35.0) U/A was normal. Will increase water intake, decrease caffeine, and begin kegal exercises. 05/13/2025 Acute URI (ICD-10 - J06.9) fluids, rest, 06/23/2025 Essential hypertension (ICD-10 - I10) Blood pressure journal 06/23/2025 Mixed hyperlipidemia (ICD-10 - E78.2) 06/30/2025 Essential hypertension (ICD-10 - I10) Will continue to monitor BP and will start taking toprol at night. 07/06/2025 Breast cancer screening (ICD-10 - Z12.31) 07/06/2025 Mammographic fibroglandular density, bilateral breasts (ICD-10 - R92.323) 08/06/2025 Annual physical exam (ICD-10 - Z00.00) 08/06/2025 Essential hypertension (ICD-10 - I10) Patient states the toprol makes her very fatigued. She would like to stop it or try something different. 06/23/2025 Vitamin D deficiency (ICD-10 - E55.9) 10/22/2024 Injury of right foot, initial encounter (ICD-10 - S99.921A) 06/23/2025 Hypothyroidism (ICD-10 - E03.9) 08/06/2025 Mixed hyperlipidemia (ICD-10 - E78.2) 08/06/2025 Vitamin D deficiency (ICD-10 - E55.9) 08/06/2025 Hypothyroidism (ICD-10 - E03.9) Plan Of Treatment Pending Test Test Name Order Date Mammogram 07/06/2025 Insurance Providers Payer Name Payer Address Payer Phone Subscriber Number Group Number Insured Name Patient Relationship to Insured Coverage Start Date Coverage End Date [employer] [address] [place] [address] [phone] [id number] LINDY ONEIL Self - patient is the insured Medical (General) History Medical History History ICD Code h/o positive ppd Esophageal reflux atypical CP cardiac intra-atrial septal aneurysm Hypertension Hypothyroidism Autoimmune thyroiditis Goiter Surgical History Surgery Date(Month/Year) laproscopic uterine tuck Colonoscopy and EGD 08/2019 Hospitalization History Reason Date(Month/Year) [facility] ER- Passed out 11/20/2021
== END 2025-10-04 23:59 | disposition home or self-care (01) ==
LOC: RAD 10:34
PROVIDERS: PCP Physician Assistant; Visit Provider Family Medicine
DX: Z12.31 Encounter for screening mammogram for malignant neoplasm of breast (principal); R92.323 Mammographic fibroglandular density, bilateral breasts
CPT/HCPCS: 77063; 77067